=== PATIENT | female | born 1955 | race Caucasian/White ===

== ENCOUNTER → 2023-04-05 | Outpatient (CLI) | payer MEDICARE, SELFPAY | END | disposition home or self-care (01) | PROVIDERS: PCP Family Medicine; Visit Provider Podiatrist Foot & Ankle Surgery | DX: E11.621 Type 2 diabetes mellitus with foot ulcer (principal) | CPT/HCPCS: 87070; 87077; 87186; 87205 ==

== ENCOUNTER 2023-05-07 06:25 | Day surgery (SDC) | payer MEDICARE, SELFPAY ==
[2023-05-07] VITALS (9 sets, daily range): BP systolic 91–162; BP diastolic 53–79; PULSE 83–882; RESP 16–23; TEMP 36.3–36.6; O2SAT 94–98; BMI 38.2
[2023-05-07] MEDS: Gabapentin 600 MG Tablet PO (07:13)
[2023-05-07] MEDS: Acetaminophen 500 MG Tablet 1000 MG PO (07:13)
[2023-05-07] MEDS: Magnesium 1 GM over 15 mins IV (07:13)
[2023-05-07] MEDS: Lactated Ringers 1,000 ML 15 ML IV ×2 (07:13→10:06)
--- NOTE | 2023-05-07 07:30 | RAD_ITS ---
STUDY: X-RAY - LEFT FOOT CLINICAL: Female, 68 years old. DORSIFLEXORY METATARSAL OSTEOTOMY LT 5TH METATARSAL TECHNIQUE: 1 view(s) of the foot. COMPARISON: 09/20/2013 FINDINGS: 31 seconds of fluoroscopy of the left foot was utilized block operator and a single image is cemented for interpretation. . RAD/Foot 2 Views IMPRESSION: Fluoroscopy during surgery. Electronically Signed: Richard Calles MD at 17:22 EDT ,
--- NOTE | 2023-05-07 08:11 | PCM.OPRPT ---
Problems Associated Problem List Diagnoses (1) Non-pressure chronic ulcer of other part of left foot with fat layer exposed: (2) Acute painful diabetic polyneuropathy: (3) Primary osteoarthritis of left foot: (4) Metatarsalgia, left foot: Report of Operation Date of Procedure: 05/07/23 Pre-Operative Diagnosis: 1. Nonpressure ulceration with fat exposed, left foot 2. Diabetes mellitus type 2 with peripheral neuropathy 3. Metatarsalgia, left foot 4. Primary osteoarthritis, left foot Post-Operative Diagnosis: 1. Nonpressure ulceration with fat exposed, left foot 2. Diabetes mellitus type 2 with peripheral neuropathy 3. Metatarsalgia, left foot 4. Primary osteoarthritis, left foot Surgery/Procedure Performed:: 1. Dorsiflexor he osteotomy, fifth metatarsal, left foot 2. Surgical prep wound site, subfifth metatarsal, left foot 3. Application of skin graft substitute, subfifth metatarsal, left foot Description of Surgical Findings:: 1. Complete osteotomy around the surgical neck of the fifth metatarsal, left foot 2. Application of skin graft substitute so fifth metatarsal head, left foot Surgeon: Ramón Squires media arts professor: None Type of Anesthesia: General and Local Anesthesiologist: Elda Bolton Special Medications: None Specimen's removed: None Drains: None Estimated Blood Loss (mL): 1 cc Fluids Replaced: Per anesthesia Description of Procedure: Indications For Operation: Mrs. Marmolejo is a 68-year-old diabetic female who was admitted to [facility] for chronic ulceration to the subfifth metatarsal head of the left foot, metatarsalgia, primary osteoarthritis all of the left foot. Patient is well known to my office and has seen me for initial consultation as well as surgical consultation for the matter described above. She has been having an ongoing wound for approximately 2 months, has gone through 1 round of oral antibiotics, due to the nature of the patient's persistent wound it had deemed necessary at this time to take the patient to the operating room to perform dorsiflexion metatarsal osteotomy of the fifth metatarsal, surgical prep of the ulceration to the subfifth metatarsal as well as application of skin graft substitute all to the left foot.. The nature of the problem, anticipated procedures, postop recovery/convalences and risk/complications include but not limited to infection, wound healing complications, hypertrophic scarring, numbness, tingling, chronic pain, CRPS, over and under correction, recurrence of deformity, DVT and or PE and the need for further surgery have been discussed in great detail with the patient. All questions have been answered to the patient's satisfaction. There are no guarantees given as to the outcome of the procedure. Description of Procedure: Under mild sedation, the patient was brought into the operating room and placed on the operating table in supine position. Once the patient was under general anesthesia with laryngeal mask airway, the left lower extremity was blocked using approximately 20 cc 0.5% Marcaine plain. Next, a well-padded calf tourniquet was applied to the left lower extremity. Next, the left lower extremity was prepped and draped in normal septic manner. Next, left lower extremity was exsanguinated with 4 inch Esmarch, elevated to 60 degrees for 1 minute and the tourniquet was inflated to 275 mmHg. Next, a timeout was then undertaken verifying the correct patient, extremity, visibility of preoperative markings, availability of the equipment. Next, attention was directed to the plantar aspect full-thickness ulceration to the subfifth metatarsal. Using a #15 blade excisional debridement as well as surgical prep for skin graft application was prepared down to and including subcutaneous tissue. Predebridement measurement was eschar. Postdebridement measurement was 0.7 x 0.4 x 0.2 cm. After debridement there showed no evidence of infection, tendon or exposed bone to sub-fifth metatarsal. Next, attention was directed to the dorsal aspect of the left foot over the fifth metatarsal. Using mini C arm and [place] the surgical site was mapped out for percutaneous incision. A small to stab incision was made using a #15 blade was over the surgical neck of the fifth metatarsal. Using the [employer] minimally invasive bobby with water irrigation, a transverse osteotomy was made across the surgical neck of the fifth metatarsal left foot. Osteotomy was confirmed to be through and through with clinical evaluation as well as with mini C-arm fluoroscopy. The small incision was irrigated with copious delmar of normal saline. Morselized bone was evacuated. The stab incision was closed with 1 simple interrupted 3-0 nylon suture. The left calf tourniquet was deflated and reperfusion was noted instantly to the left lower extremity., bio [place] 2 x 2 cm was applied with 100% use to the full-thickness ulceration to the subfifth metatarsal head of the left foot. The left lower extremity was white clean and patted dry. The graft site was dressed with Adaptic, Steri-Strips, the dorsal incision was dressed with Betadine soaked Adaptic, followed by bolster dressing and a single layer Quiroz compression bandage was donned. The patient tolerated the procedure and anesthesia well and apparent satisfactory condition and was transported to the PACU for further monitoring prior to discharge home. Vital signs stable and vascular status intact to all digits bilateral. Post Operative Plan: Weightbearing: Weightbearing as tolerated to left lower extremity with surgical shoe Antibiotics: 2 g Ancef through the IV DVT Prophylaxis: Ambulation Diaz: None Dressin x 2 cm Biovance, Adaptic, Betadine soaked Adaptic to the dorsal incision, dry sterile dressing and a single layer Quiroz compression bandage X-Rays: Post-operative films taken on the operating room. Pain Medication: Percocet 5/325 Follow-up: Follow-up [address] Squires in private office. Grafts/Implants Used: 1. Biovance 2 x 2 cm, left foot Complications None Admit VTE Documentation VTE Present on Admission: No VTE Mechan Device Prophylaxis: SCD's VTE Pharm Prophylaxis ordered?: No
[2023-05-07] MEDS: Cefazolin 2 GM in 0.9% Normal Saline (100mL Bag) 100 ML IV (08:17)
[2023-05-07] MEDS: Bupivacaine Mpf 0.5% 30 ML VIAL (08:36)
[2023-05-07 08:53] LABS: Bedside Glucose 172 mg/dL (74-106)
[2023-05-07 09:47] LABS: Bedside Glucose 104 mg/dL (74-106)
== END 2023-05-07 11:49 | disposition home or self-care (01) ==
LOC: SDC 06:29 → AC 06:32
PROVIDERS: PCP Family Medicine; Referring Provider Podiatrist Foot & Ankle Surgery; Visit Provider Podiatrist Foot & Ankle Surgery
PROC: (CPT 28308; principal; 2023-05-07 08:20)
DX: E11.621 Type 2 diabetes mellitus with foot ulcer (principal); E11.3512 Type 2 diabetes mellitus with proliferative diabetic retinopathy with macular edema, left eye; L97.522 Non-pressure chronic ulcer of other part of left foot with fat layer exposed; E11.42 Type 2 diabetes mellitus with diabetic polyneuropathy; E11.3411 Type 2 diabetes mellitus with severe nonproliferative diabetic retinopathy with macular edema, right eye; E66.01 Morbid (severe) obesity due to excess calories; Z79.4 Long term (current) use of insulin; M19.072 Primary osteoarthritis, left ankle and foot; I10 Essential (primary) hypertension; E78.00 Pure hypercholesterolemia, unspecified; E55.9 Vitamin D deficiency, unspecified; Z68.37 Body mass index [BMI] 37.0-37.9, adult; Z79.82 Long term (current) use of aspirin; Z79.84 Long term (current) use of oral hypoglycemic drugs; Z79.899 Other long term (current) drug therapy
CPT/HCPCS: 28308; 15004; 36415; 73620; 76000; 82962; 83735; 87081; J7120; J2405; J3475

== ENCOUNTER 2023-07-13 23:11 | Emergency (ER) | payer MEDICARE, SELFPAY ==
[2023-07-13 23:11] VITALS: BP 118/99; PULSE 78; RESP 16; TEMP 36.7; O2SAT 97
[2023-07-14 00:40] VITALS: BMI 37.3
--- NOTE | 2023-07-14 01:46 | EX.ED.DYSGE1 ---
HPI History of Present Illness Chief Complaint: Cold Sx Informant: patient Narrative Narrative: Patient is a 68-year-old female with past medical history of insulin-dependent diabetes as well as hypertension. She states she began with congestion drainage and cough on and tested positive for COVID roughly 3 days ago. She states that she is feeling short of breath more so in the last 1 to 2 days then she has and has concerned that her COVID is worsening or that her oxygen level is low and therefore comes in for evaluation [facility] Medical History (Updated 07/15/23 @ 23:[address] Emerson Villalobos, ) Arthritis Diabetes Dietary restriction High cholesterol History of edema History of IBS History of kidney stones Hypertension Non-smoker Wears glasses Home Medications ascorbic acid (vitamin C) 100 mg tablet (Vitamin C) 100 mg PO DAILY 05/02/23 [History Last Taken Unknown] aspirin 81 mg capsule 81 mg PO DAILY 05/02/23 [History Last Taken 04/29/23] cholecalciferol (vitamin D3) 1,250 mcg (50,000 unit) capsule 1,250 mcg PO QWEEK 05/02/23 [History Last Taken Unknown] empagliflozin 25 mg tablet (Jardiance) 25 mg PO DAILY 05/02/23 [History Last Taken Unknown] insulin degludec 200 unit/mL (3 mL) subcutaneous pen (Tresiba FlexTouch U-200 insulin) 65 unit subcut DAILY 05/02/23 [History Last Taken Unknown] insulin degludec 200 unit/mL (3 mL) subcutaneous pen (Tresiba FlexTouch U-200 insulin) 70 unit subcut QHS 05/02/23 [History Last Taken Unknown] lisinopril 20 mg-hydrochlorothiazide 12.5 mg tablet 1 tab PO DAILY 05/02/23 [History Last Taken Unknown] metformin 500 mg tablet,extended release 24 hr 1,000 mg PO BID 05/02/23 [History Last Taken Unknown] multivitamin (Daily Multi-Vitamin tablet) 1 tab PO DAILY 05/02/23 [History Last Taken Unknown] simvastatin 40 mg tablet 40 mg PO DAILY 05/02/23 [History Last Taken Unknown] calcium carbonate 500 mg-vitamin D3 15 mcg (600 unit) tablet (Os-Khoi 500 + D3) 1 tab PO DAILY 90 days #90 tabs 05/07/23 [Rx Last Taken Unknown] docusate sodium 100 mg capsule (Colace) 100 mg PO DAILY 10 days #10 caps 05/07/23 [Rx Last Taken Unknown] albuterol sulfate 90 mcg/actuation aerosol inhaler (Ventolin HFA) 2 puff inhalation Q4H PRN PRN Wheezing/SOB #1 device 07/14/23 [Rx Last Taken Unknown] ascorbic acid (vitamin C) 1,000 mg tablet (Vitamin C) 500 mg PO DAILY 07/14/23 [History Last Taken Unknown] benzonatate 100 mg capsule 100 mg PO Q8H PRN cough 07/14/23 [History Last Taken Unknown] promethazine 6.25 mg/5 mL oral syrup 6.25 mg PO Q6H PRN cough 07/14/23 [History Last Taken Unknown] Allergy/AdvReac Type Severity Reaction Status Date / Time No Known Allergies Allergy Verified 07/13/23 23:13 Surgical History History of hysterectomy Social History Smoking Status: Never smoker ROS ROS ED Constitutional Constitutional ED: Denies chills or fever(s) ENT ENT ED: Reports rhinorrhea and sore throat Cardiovascular Cardiovascular: Denies chest pain Respiratory/Chest Respiratory/Chest: Reports cough and dyspnea Gastrointestinal Gastrointestinal: Denies abdominal pain, diarrhea, nausea or vomiting Genitourinary Genitourinary ED: Denies dysuria Musculoskeletal Musculoskeletal: Reports myalgias Integumentary Denies rash Neurologic Neurologic: Denies headache(s) Hematologic/Lymphatic Hematologic/Lymphatic: Denies easy bleeding or easy bruising EXAM Physical Exam Const Vital Signs: 07/13/23 23:11 07/14/23 00:38 Temperature 98.1 F Temperature Source Temporal Pulse Rate 78 Respiratory Rate 16 Respiratory Effort Short of Breath Respiratory Pattern Normal Blood Pressure 118/99 H Blood Pressure Mean 105 Pulse Ox 97 Oxygen Delivery Method Room Air Positive well nourished, well developed and obese General Appearance ED: well developed Nutritional Appearance: obese HEENT HEENT Narrative: Bilateral TMs are retracted but show no secondary changes to suggest infection Nasal mucosa is hyperemic and boggy with enlarged inferior nasal turbinates Posterior pharynx displays cobblestoning consistent with sinus drainage without airway edema or compromise Eyes PERRL and EOMs intact bilaterally Neck supple and no JVD Neck Narrative: Positive anterior cervical lymphadenopathy Chest Wall palpation of chest normal Chest Narrative: No bony deformity or crepitance Resp normal respiratory effort Resp Narrative: Breath sounds are slight diminished throughout with faint expiratory wheeze in the bilateral bases but otherwise no nasal flaring retractions tachypnea stridor or accessory muscle use Cardio regular rate and regular rhythm Rate: other Other Details: Heart is regular rate and rhythm without murmurs rubs or gallops Radial and carotid pulses are equal and symmetric Extremity normal to inspection Extremity Narrative: No asymmetric edema no pitting edema negative Homans' sign bilaterally Neuro oriented x3, CN's II-XII intact bilaterally and no sensory deficits noted Sensorium / Orientation: alert Motor Exam: strength 5/5 throughout Psych Psych Narrative: Patient has a nervous/anxious affect Skin no rashes or lesions noted MDM MDM MDM Narrative Medical decision making narrative: Patient presented to the ER slightly hypertensive but otherwise with stable vitals. She has known COVID as she tested positive for this a few days ago. At this time she is not hypoxic or showing signs of respiratory distress. Based on this I do not feel there is a need for a chest x-ray as even if it showed pneumonia this could be COVID-pneumonia and would still not require antibiotics. As she is afebrile and not tachycardic my concern for pneumonia and septicemia is low. Therefore at this time patient has COVID but she is not hypoxic she is not in respiratory distress she is not requiring supplemental oxygen and therefore there is no need for further workup and she can be discharged home Discharge Plan Triage Chief Complaint: Cold Sx ED Provider: Emerson Villalobos Dx/Rx/DC Orders Clinical Impression: COVID-19, Insulin dependent diabetes mellitus, Hypertension Instructions: Coronavirus Disease 2019 (COVID-19): Overview, Coronavirus Disease 2019 (COVID-19): Caring for Yourself or Others Prescriptions: New albuterol sulfate [Ventolin HFA] 90 mcg/actuation HFA aerosol inhaler 2 puff inhalation Q4H PRN PRN (Reason: Wheezing/SOB) Qty: 1 0RF No Action benzonatate 100 mg capsule 100 mg PO Q8H PRN (Reason: cough) Patient Comments: Take 1 capsule by mouth every 8 hours as needed for cough for up to 15 days. promethazine 6.25 mg/5 mL syrup 6.25 mg PO Q6H PRN (Reason: cough) Rx Instructions: 3 doses during day; last dose no later than 4 hr before bedtime ascorbic acid (vitamin C) [Vitamin C] 1,000 mg tablet 500 mg PO DAILY Patient Comments: only supposed to take 500 mg lisinopril-hydrochlorothiazide 20-12.5 mg tablet 1 tab PO DAILY Patient Comments: TAKE 1 TABLET BY MOUTH DAILY simvastatin 40 mg tablet 40 mg PO DAILY Patient Comments: TAKE 1 TABLET BY MOUTH EVERY NIGHT AT BEDTIME metformin 500 mg tablet extended release 24 hr 1,000 mg PO BID Patient Comments: TAKE 4 TABLETS BY MOUTH EVERY DAY Vitamin C 100 mg tablet 100 mg PO DAILY aspirin 81 mg capsule 81 mg PO DAILY cholecalciferol (vitamin D3) 1,250 mcg (50,000 unit) capsule 1,250 mcg PO QWEEK Patient Comments: TAKE 1 CAPSULE BY MOUTH EVERY week Jardiance 25 mg tablet 25 mg PO DAILY insulin degludec [Tresiba FlexTouch U-200] 200 unit/mL (3 mL) insulin pen 65 unit subcut DAILY Rx Instructions: MORNING insulin degludec [Tresiba FlexTouch U-200] 200 unit/mL (3 mL) insulin pen 70 unit subcut QHS multivitamin [Daily Multi-Vitamin] Tablet 1 tab PO DAILY docusate sodium [Colace] 100 mg capsule 100 mg PO DAILY 10 Days Qty: 10 0RF calcium carbonate-vitamin D3 [Os-Khoi 500 + D3] 500 mg-15 mcg (600 unit) tablet 1 tab PO DAILY 90 Days Qty: 90 0RF Primary Care Provider: Lamar Granados Referrals: Lamar Granados DO [Primary Care Provider] - Activity Restrictions/Additional Instructions: Continue all the medication that was prescribed by your doctor for your COVID. However as part of your cough is related bronchospasm please use the albuterol inhaler as directed. Your oxygen level today has been very normal at 97 to 100%. Please return to the ER should you have any further concerns or worsening of symptoms Disposition Disposition: Home, Self Care Discharge Date/Time: 07/14/23 02:05
--- OUTSIDE RECORDS SUMMARY | 2023-07-14 01:57 | XMS RPT_ITS | CCD ---
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 Name Role Phone REFERRINGESTEFANIA Unavailable Unavailable QUYEN HIRSCH Unavailable Unavailable QUYEN HIRSCH Unavailable Unavailable LEVAR GRANADOS DO Primary Care Physician [phone] LEVAR RGANADOS DO Attending Unavailable LEVAR GRANADOS DO Primary Care Unavailable LEVAR GRANADOS DO Attending Unavailable LEVAR GRANADOS DO Primary Care Unavailable LEVAR GRANADOS DO Attending Unavailable LEVAR GRANADOS DO Primary Care Unavailable LEVAR GRANADOS DO Attending Unavailable LEVAR GRANADOS DO Primary Care Unavailable LEVAR GRANADOS DO Attending Unavailable LEVAR GRANADOS DO Primary Care Unavailable Levar Granados DO Primary Care Provider [phone] LEVAR GRANADOS Primary Care Unavailable SANGEETA MONCADA Attending Unavailable LEVAR GRANADOS Primary Care Unavailable Allergies Allergy Classification Reported Allergen(s) Allergy Type Date of Onset Reaction(s) Facility (2 sources) Contrast media; Translations: [iodinated radiocontrast agents] Drug allergy Itching (finding) [facility] [place] Medications Current Medications Medication Drug Class(es) Dates Sig (Normalized) Sig (Original) alendronic acid 70 mg oral tablet (1 source) Bisphosphonate Start: 02-16-2022 Fosamax 70 mg oral tablet Dose : 70 mg = 1 tab(s), Oral, qWeek, # 5 tab(s), 3 Refill(s), Pharmacy: [id number], Osteoporosis, 150, cm, 02/16/22 16:05:00 EDT, Height Start Date: 02/16/22 Status: Ordered Ascorbic Acid (1 source) Vitamin C Start: 05-19-2022 Vitamin C qDay, takes periodically, 0 Refill(s) Start Date: 05/19/22 Status: Ordered aspirin 81 mg delayed release oral tablet (4 sources) Platelet Aggregation Inhibitor, Nonsteroidal Anti-inflammatory Drug Start: 02-07-2019 take 1 mg by mouth once daily aspirin 81 mg oral delayed release tablet mg = tab(s), Oral, qDay, 0 Refill(s) Start Date: 02/07/19 Status: Ordered benzonatate 100 mg oral capsule (1 source) Non-narcotic Antitussive Start: 07-09-2023 End: 07-24-2023 take 1 capsule by mouth every eight hours as needed for cough benzonatate (TESSALON PERLE) 100 mg capsule Indications: URI, acute Take 1 capsule by mouth every 8 hours as needed for cough for up to 15 days. 30 capsule 0 07/09/2023 07/24/2023 Active Completed/Discontinued Medications Medication Drug Class(es) Dates Sig (Normalized) Sig (Original) B cmplx 4/vit D3/C/folic/zinc (VITAL-D RX ORAL) (1 source) B cmplx 4/vit D3/C/folic/zinc (VITAL-D RX ORAL) Take by mouth. 0 Active Problems Active Problems Problem Classification Problem Date Documented Date Episodic/Chronic Abdominal pain (4 sources) Stomach ache 03-29-2019 Episodic Allergic reactions (2 sources) Contact dermatitis 02-16-2022 Episodic Calculus of urinary tract (4 sources) Kidney stone 04-29-2015 Episodic Diabetes mellitus with complications (1 source) Diabetic foot ulcer 04-24-2023 Chronic Diabetes mellitus without complication (10 sources) Diabetes mellitus; Translations: [Type 2 diabetes mellitus] Onset: 11-25-1904-29-2015 Chronic Disorders of lipid metabolism (4 sources) Hypercholesterolemia 02-07-2019 Chronic Essential hypertension (7 sources) Hypertensive disorder; Translations: [Essential (primary) hypertension] Onset: 11-25-19 23 02-07-2019 Chronic Mycoses (4 sources) Candidiasis 02-07-2019 Episodic Nutritional deficiencies (4 sources) Vitamin D deficiency 05-21-2020 Chronic Osteoarthritis (4 sources) Arthritis 04-29-2015 Chronic Osteoporosis (2 sources) Osteoporosis 02-16-2022 Chronic Other connective tissue disease (1 source) Foot pain 04-27-2023 Episodic Other gastrointestinal disorders (4 sources) Irritable bowel syndrome 12-03-2020 Chronic Other gastrointestinal disorders (4 sources) Abdominal bloating 03-29-2019 Episodic Other gastrointestinal disorders (1 source) Constipation 04-24-2023 Episodic Other nervous system disorders (2 sources) Numbness of hand 02-16-2022 Episodic Other nutritional; endocrine; and metabolic disorders (1 source) Body mass index 30+ - obesity 08-25-2022 Chronic Other nutritional; endocrine; and metabolic disorders (1 source) Morbid obesity 08-25-2022 Chronic Other screening for suspected conditions (not mental disorders or infectious disease) (2 sources) Viral screening status 02-16-2022 Episodic Other upper respiratory infections (1 source) Acute upper respiratory infection; Translations: [Acute upper respiratory infection, unspecified] 07-09-2023 Episodic Residual codes; unclassified (4 sources) Flushing 12-03-2020 Episodic Residual codes; unclassified (4 sources) Insomnia 07-11-2019 Episodic Residual codes; unclassified (4 sources) Postmenopausal state 10-07-2021 Episodic Residual codes; unclassified (4 sources) Requires vaccination 10-07-2021 Episodic Residual codes; unclassified (1 source) Needs influenza immunization 05-19-2022 Episodic Residual codes; unclassified (1 source) Preoperative state 04-27-2023 Episodic Unclassified (1 source) Unknown / UNK(Unknown) Onset: 01-13-20 Unclassified (18 sources) Patient encounter status 10-07-2021 Unclassified (4 sources) Suspected disease caused by 2019-nCoV 07-29-2020 Unclassified (1 source) Influenza vaccination status 08-25-2022 Unclassified (1 source) Never used tobacco 08-25-2022 Past or Other Problems Problem Classification Problem Date Documented Da te Episodic/Chronic Unclassified (1 source) SCREENING Onset: 01-12-2017 Results Test Name Value Interpretation Reference Range Facil ity Vital Signs Date Time Vital Sign Value Performing Clinician Faci lity 07-09-2023 09:17-0500 Body temperature 97.7 [degF] Sangeeta Moncada MD Work Phone: [facility] 07-09-2023 09:17-0500 Body weight 85.28 kg Sangeeta Moncada MD Work Phone: [facility] 07-09-2023 09:17-0500 Diastolic blood pressure 72 mm[Hg] Sangeeta Moncada MD Work Phone: [facility] 07-09-2023 09:17-0500 Heart rate 94 /min Sangeeta Moncada MD Work Phone: [facility] 07-09-2023 09:17-0500 Respiratory rate 16 /min Sangeeta Moncada MD Work Phone: [facility] 07-09-2023 09:17-0500 SaO2% (BldA) [Mass fraction] 96 % Sangeeta Moncada MD Work Phone: [facility] 07-09-2023 09:17-0500 Systolic blood pressure 122 mm[Hg] Sangeeta Moncada MD Work Phone: [facility] Encounters Encounter Date Encounter Type Care Provider Facility Start: 07-09-2023 End: 07-09-2023 ambulatory LEVAR GRANADOS Facility:[facility] Start: 07-09-2023 End: 07-09-2023 Patient encounter procedure Sangeeta Moncada MD Work Phone: [facility] Procedures Date Procedure Procedure Detail Performing Clinician Hysterectomy GEO MOLINA APR N-LASER/ELECTRO OPTICS TECHNICIAN Kidney stone (disorder) GEO MOLINA TRANSIT DEPARTMENT CLERK-LASER/ELECTRO OPTICS TECHNICIAN Lithotripsy GEO MOLINA APR N-LASER/ELECTRO OPTICS TECHNICIAN Plan of Treatment Date Care Activity Detail Author Start: 07-09-2023 Advance Directive Discussion Advance Directive Discussion [facility] Start: 07-09-2023 Depression Assessment Depression Assessment [facility] Start: 05-21-2023 Urine microalbumin profile DTaP,Tdap,Td Vaccine (2 - Td or Tdap) [facility] Start: 03-09-2023 Covid-19 Vaccine () Covid-19 Vaccine () [facility] Start: 01-19-2020 Screening for osteoporosis Bone Density Screening [facility] Start: 2015 RSV Vaccine (1 - 1-dose 60+ series) RSV Vaccine (1 - 1-dose 60+ series) [facility] Start: 2005 Shingrix Vaccine (1 of 2) Shingrix Vaccine (1 of 2) [facility] Start: 01-19-2000 Diabetes Screening Diabetes Screening [facility] Start: 01-19-2000 Lipid panel Lipid Screening [facility] Start: 01-19-2000 Screening for malignant neoplasm of colon [facility] Start: 1995 Screening for malignant neoplasm of breast Mammogram Screening [facility] Start: 1973 Hepatitis C screening Hepatitis C Screening [facility] COVID & INFLUENZA A/ B & RSV NAAT, ROUTINE COVID & INFLUENZA A/B & RSV NAAT, ROUTINE Microbiology Routine URI, acute Ordered: 07/09/2023 [facility] Work Phone: Immunizations Immunization Date Immunization Notes Care Provider Carlos rosales 02-23-2023 Pneumococcal conjuga te PCV20, polysaccharide [id number] conjugate, adjuvant, PF; Translations: [Prevnar 20] LEVAR GRANADOS DO [facility] 05-19-2022 influenza, high dose seasonal, preservative-free LEVAR GRANADOS DO [facility] 10-07-2021 pneumococcal polysaccharide vaccine, 23 valent; Translations: [Pneumovax 23] GEO MOLINA TRANSIT DEPARTMENT CLERK-LASER/ELECTRO OPTICS TECHNICIAN [facility] 06-24-2021 SARS-CoV-2 mRNA (tozinameran) vaccine GEO MOLINA TRANSIT DEPARTMENT CLERK-LASER/ELECTRO OPTICS TECHNICIAN [facility] 12-09-2020 SARS-CoV-2 mRNA (tozinameran) vaccine GEO MOLINA TRANSIT DEPARTMENT CLERK-LASER/ELECTRO OPTICS TECHNICIAN [facility] Payers Date Payer Category Payer Unknown ANTHEM BLUE CROS S AND BLUE SHIELD AN[employer]M MEDIBLUE HMO [id number] 2023-Present [phone] [address] [place] [address] O [id number] 2021 Unknown [id number] 2016 Unknown [id number] 1955 Unknown [id number] 1955 Unknown [id number] 1955 Unknown [id number] 1955 Unknown [id number] 1955 Unknown [id number] Social History Date Type Detail Facility Start: 02-20-2020 End: 07-04-2023 Tobacco smoking status Never smoked tobacco (finding) [facility] Sex Assigned At Female [facility] Start: 07-04-2023 Tobacco use and exposure Smokeless tobacco non-user [facility] Work Phone: Start: 06-15-2020 End: 07-09-2023 History of Social function [facility] Start: 06-15-2020 End: 07-09-2023 Tobacco use panel [facility] National Score (1-100), lower number is lower risk Not on file [facility] Start: 1955 Sex Assigned At Not on file [facility] Medical Equipment Procedure Code Equipment Code Equipment Origin al Text Equipment Identifier Dates See Instructions , Enbrace talk test strips. Patient to check sugars twice a day. Please give quantity sufficient for 90 days with 3 refills. Diagnosis type 2 diabetes on insulin, # 200 EA, 3 Refill(s), Pharmacy: [facility], Diabetes... Start: 10-07-2021 See Instructions , Please give formulary preferred. Patient to check sugars twice a day. Please give 90-day supply with 3 refills. Diagnosis type 2 diabetes with insulin use, # 200 EA, 3 Refill(s), Pharmacy: [facility], Diabetes, 150... Start: 10-07-2021 See Instructions , USE DIRECTED, # 100 EA, 12 Refill(s), Pharmacy: [facility], Diabetes mellitus, 150, cm, 03/04/21 15:06:00 EDT, Height, 80, kg, 03/04/21 15:06:00 EDT, Dosing Weight Start: 03-04-2021 See Instructions , USE BID. Please give quantity sufficient for 90 days. 3 refills. Diagnosis type 2 diabetes, # 200 EA, 3 Refill(s), Pharmacy: [facility], Diabetes, 150.5, cm, 10/07/21 15:07:00 EDT, Height, 75.9, kg, 10/07/21 15:07... Start: 10-07-2021 See Instructions , Enbrace talk test strips. Patient to check sugars twice a day. Please give quantity sufficient for 90 days with 3 refills. Diagnosis type 2 diabetes on insulin, # 200 EA, 3 Refill(s), Pharmacy: [facility], Diabetes... Start: 10-07-2021 See Instructions , Please give formulary preferred. Patient to check sugars twice a day. Please give 90-day supply with 3 refills. Diagnosis type 2 diabetes with insulin use, # 200 EA, 3 Refill(s), Pharmacy: [facility], Diabetes, 150... Start: 10-07-2021 See Instructions , USE DIRECTED, # 100 EA, 12 Refill(s), Pharmacy: [facility], Diabetes mellitus, 150, cm, 03/04/21 15:06:00 EDT, Height, 80, kg, 03/04/21 15:06:00 EDT, Dosing Weight Start: 03-04-2021 See Instructions , USE BID. Please give quantity sufficient for 90 days. 3 refills. Diagnosis type 2 diabetes, # 200 EA, 3 Refill(s), Pharmacy: [facility], Diabetes, 150.5, cm, 10/07/21 15:07:00 EDT, Height, 75.9, kg, 10/07/21 15:07... Start: 10-07-2021 See Instructions , Enbrace talk test strips. Patient to check sugars twice a day. Please give quantity sufficient for 90 days with 3 refills. Diagnosis type 2 diabetes on insulin, # 200 EA, 3 Refill(s), Pharmacy: [facility], Diabetes... Start: 10-07-2021 See Instructions , Please give formulary preferred. Patient to check sugars twice a day. Please give 90-day supply with 3 refills. Diagnosis type 2 diabetes with insulin use, # 200 EA, 3 Refill(s), Pharmacy: [facility], Diabetes, 150... Start: 10-07-2021 See Instructions , USE DIRECTED, # 100 EA, 12 Refill(s), Pharmacy: [facility], Diabetes mellitus, 150, cm, 03/04/21 15:06:00 EDT, Height, 80, kg, 03/04/21 15:06:00 EDT, Dosing Weight Start: 03-04-2021 See Instructions , USE BID. Please give quantity sufficient for 90 days. 3 refills. Diagnosis type 2 diabetes, # 200 EA, 3 Refill(s), Pharmacy: [facility], Diabetes, 150.5, cm, 10/07/21 15:07:00 EDT, Height, 75.9, kg, 10/07/21 15:07... Start: 10-07-2021 See Instructions , Enbrace talk test strips. Patient to check sugars twice a day. Please give quantity sufficient for 90 days with 3 refills. Diagnosis type 2 diabetes on insulin, # 200 EA, 3 Refill(s), Pharmacy: [facility], Diabetes, 150.5, cm, 10/07/21 15:07:00 EDT, Height, 75.9 Start: 10-07-2021 See Instructions , Please give formulary preferred. Patient to check sugars twice a day. Please give 90-day supply with 3 refills. Diagnosis type 2 diabetes with insulin use, # 200 EA, 3 Refill(s), Pharmacy: [facility], Diabetes, 150.5, cm, 10/07/21 15:07:00 EDT, Height, 75.9 Start: 10-07-2021 UNIFINE PNTP 31G X6MM MIS, 0 Refill(s), 83.9 Start: 10-13-2022 Clinical Notes 01-26-2022 to 07-09-2023 Sangeeta Moncada MD - 07/09/2023 9:19 AM ESTLaboratoryRadiologyLaboratoryLaboratoryLaboratoryRadiology Note Date & Type Note Facility 07-09-2023 Note HNO ID: [id number] Author: Sangeeta Moncada MD Service: ? Author Type: Physician Type: Progress Notes Filed: 07/09/2023 9:54 AM Note Text: Patient presents with: Head Congestion: chest congestion,cough, headache x 1 week HPI: Feeling sick for 8 days. Positive symptoms: Cough, Chest congestion, Headache, Nasal Congestion, Rhinorrhea, chills, scratchy throat Negative symptoms: Shortness of breath, Wheezing, Vomiting, Diarrhea, OTC: Mucinex, zinc. Prescribed doxycycline for burn 07/04/23. Denies history of asthma or pneumonia. No history of smoking. She has had bronchitis in the past. MEDICATIONS: Current Outpatient Medications Medication Sig empagliflozin (JARDIANCE) 25 mg tablet Take 25 mg by mouth daily with breakfast. metFORMIN ER (GLUCOPHAGE XR) 750 mg 24 hr tablet Take 750 mg by mouth daily with breakfast. lisinopril-hydrochlorothiazide (PRINZIDE,ZESTORETIC) 10-12.5 mg per tablet Take 1 tablet by mouth once daily. insulin detemir (LEVEMIR FLEXPEN SUBCUTANEOUS) Inject subcutaneously. simvastatin (ZOCOR) 40 mg tablet Take 40 mg by mouth daily at bedtime. B cmplx 4/vit D3/C/folic/zinc (VITAL-D RX ORAL) Take by mouth. No current facility-administered medications for this visit. ALLERGIES: ALLERGIES No Known Allergies VITALS: BP 122/72 Pulse 94 Temp 36.5 ?C (97.7 ?F) Resp 16 Wt 85.3 kg (188 lb) SpO2 96% PHYSICAL EXAM: GEN: pleasant, alert, mildly ill appearing HEENT: PERRL, EOMI, conjunctiva clear Ears: canals clear. TMs without erythema, bulge, or effusion Sinuses: non-tender frontal sinus, non-tender maxillary sinuses Throat: moist mucous membranes, no erythema, no exudate Neck: supple, no thyromegaly, no lymphadenopathy HEART: regular rate and rhythm, no murmurs LUNGS: clear to auscultation, no wheezes or crackles, no increased WOB; inspiration induces cough. ASSESSMENT/PLAN: 1. URI, acute - ICD9: 465.9, ICD10: J06.9 - Discussed viral etiology and rationale for treatment. - differential includes - COVID AND INFLUENZA A/B AND RSV NAAT, ROUTINE. She is beyond the therapeutic window for antiviral medication. - Discussed supportive care treatment with home isolation, rest, cold medicine, and analgesia. - Red flags to seek further treatment include chest pain, shortness of breath, and lethargy; in the ER if severe. - Symptomatic treatment with prn cough suppressant. - BENZONATATE 100 MG CAPSULE Sangeeta Moncada MD [facility] 07-09-2023 History of Present illness Narrative Patient presents with: Head Congestion: chest congestion,cough, headache x 1 week HPI: Feeling sick for 8 days. Positive symptoms: Cough, Chest congestion, Headache, Nasal Congestion, Rhinorrhea, chills, scratchy throat Negative symptoms: Shortness of breath, Wheezing, Vomiting, Diarrhea, OTC: Mucinex, zinc. Prescribed doxycycline for burn 07/04/23. Denies history of asthma or pneumonia. No history of smoking. She has had bronchitis in the past. MEDICATIONS: Current Outpatient Medications Medication Sig empagliflozin (JARDIANCE) 25 mg tablet Take 25 mg by mouth daily with breakfast. metFORMIN ER (GLUCOPHAGE XR) 750 mg 24 hr tablet Take 750 mg by mouth daily with breakfast. lisinopril-hydrochlorothiazide (PRINZIDE,ZESTORETIC) 10-12.5 mg per tablet Take 1 tablet by mouth once daily. insulin detemir (LEVEMIR FLEXPEN SUBCUTANEOUS) Inject subcutaneously. simvastatin (ZOCOR) 40 mg tablet Take 40 mg by mouth daily at bedtime. B cmplx 4/vit D3/C/folic/zinc (VITAL-D RX ORAL) Take by mouth. No current facility-administered medications for this visit. ALLERGIES: ALLERGIES No Known Allergies VITALS: BP 122/72 Pulse 94 Temp 36.5 C (97.7 F) Resp 16 Wt 85.3 kg (188 lb) SpO2 96% PHYSICAL EXAM: GEN: pleasant, alert, mildly ill appearing HEENT: PERRL, EOMI, conjunctiva clear Ears: canals clear. TMs without erythema, bulge, or effusion Sinuses: non-tender frontal sinus, non-tender maxillary sinuses Throat: moist mucous membranes, no erythema, no exudate Neck: supple, no thyromegaly, no lymphadenopathy HEART: regular rate and rhythm, no murmurs LUNGS: clear to auscultation, no wheezes or crackles, no increased WOB; inspiration induces cough. ASSESSMENT/PLAN: 1. URI, acute - ICD9: 465.9, ICD10: J06.9 - Discussed viral etiology and rationale for treatment. - differential includes - COVID & INFLUENZA A/B & RSV NAAT, ROUTINE. She is beyond the therapeutic window for antiviral medication. - Discussed supportive care treatment with home isolation, rest, cold medicine, and analgesia. - Red flags to seek further treatment include chest pain, shortness of breath, and lethargy; in the ER if severe. - Symptomatic treatment with prn cough suppressant. - BENZONATATE 100 MG CAPSULE Sangeeta Moncada MD documented in this encounter [facility] 07-04-2023 Note HNO ID: [id number] Author: Darlene Bartholomew APRN.LASER/ELECTRO OPTICS TECHNICIAN Service: ? Author Type: Nurse Practitioner Type: Progress Notes Filed: 07/04/2023 2:58 PM Note Text: CC: Patient presents with: Congested: cough and chills x 3 days HPI: Cecelia Marmolejo is a 68 year old female who presents to the office with complaint of head congestion and cough, nonproductive for a few days. Symptoms are staying the same. Associated symptoms includes chills. Denies fever, nausea, vomiting , and diarrhea. Treatments tried include nothing so far. with no relief of symptoms. Sick contacts: unknown. History of asthma, frequent episodes of bronchitis, chronic bronchitis, bronchiectasis or COPD: No Smoker: No Seasonal/environmental allergies: No The ROS is otherwise negative. The patient's pmh, medications, allergies, and past visits are reviewed. PHYSICAL EXAM: BP 142/92 Pulse 82 Temp 36.2 ?C (97.2 ?F) Resp 18 Wt 85.7 kg (189 lb) SpO2 97% General appearance: alert, cooperative, pleasant, in no acute distress Head: Normocephalic Eyes: EOM's intact, conjunctiva pink and moist, no icterus, sclera white, non-injected Heart: Negative. RRR without obvious murmur, gallop, or rubs. No ectopy. Lungs: clear to auscultation, without rales or wheeze, good air exchange Skin: patient had small scabbed area on top right hand by thumb about half inch in size with erythema surrounding the area. Patient said she burnt herself about 5 days ago. Area warm and painful. No past medical history on file. No past surgical history on file. ALLERGIES Patient has no known allergies. MEDICATIONS metFORMIN ER (GLUCOPHAGE XR) 750 mg 24 hr tablet Take 750 mg by mouth daily with breakfast. lisinopril-hydrochlorothiazide (PRINZIDE,ZESTORETIC) 10-12.5 mg per tablet Take 1 tablet by mouth once daily. insulin detemir (LEVEMIR FLEXPEN SUBCUTANEOUS) Inject subcutaneously. simvastatin (ZOCOR) 40 mg tablet Take 40 mg by mouth daily at bedtime. B cmplx 4/vit D3/C/folic/zinc (VITAL-D RX ORAL) Take by mouth. empagliflozin (JARDIANCE) 25 mg tablet Take 25 mg by mouth daily with breakfast. doxycycline monohydrate 100 mg tablet Take 1 tablet by mouth two times a day for 5 days. No family history on file. Social History Tobacco Use Smoking status: Never Smokeless tobacco: Never ASSESSMENT/PLAN: 1. URI, acute - ICD9: 465.9, ICD10: J06.9 (primary diagnosis) - COVID AND INFLUENZA A/B AND RSV NAAT, ROUTINE 2. Skin infection - ICD9: 686.9, ICD10: L08.9 - DOXYCYCLINE MONOHYDRATE 100 MG TABLET Prescription instructions reviewed with patient as applicable. Potential red flag symptoms discussed with the patient. Reviewed appropriate action plan to take if red flag symptoms occur. Patient agreeable to treatment plan. Darlene Bartholomew APRN.[facility] 02-15-2022 Note ORIGINAL EXAMINATION: BONE DENSITOMETRY02/15/2022 2:56 pm BONE DENSITY/DEXA [facility] BONE DENSITOMETRY TECHNIQUE: Bone mineral density measurements were obtained of the lumbar spine and left hip on a Hologic machine. COMPARISON: None HISTORY: ORDERING SYSTEM PROVIDED HISTORY: Reason for Exam: Osteoporosis Screening FINDINGS: BMD (g/cm2) Lumbar Spine L1-L4: 0.832 t Score Lumbar Spine L1-L4: -2.0 BMD (g/cm2) Left Femoral Neck: 0.537 t Score Left Femoral Neck: -2.8 BMD (g/cm2) Left Hip: 0.828 t Score Left Hip: -0.9 *By the World Health Organization criteria: (Comparing with young normal sex matched population) - Normal: T-score at or above -1 SD (standard deviation) - Osteopenia: T-score between -1 and -2.5 SD - Osteoporosis: T-score at or below -2.5 SD FRAX: 10-year fracture risk assessment Not applicable as some T-scores are at or below -2.5. IMPRESSION: Osteoporosis. I have personally reviewed the images of this examination and agree with the resident's findings and interpretation. Interpreted by: Yue Ramsey Preliminary Report By: Bonnie Perry Electronically signed By Yue Ramsey Dictated Date: 02/15/2022 3:30:10 PM Prelim Date: 02/15/2022 5:27:07 PM Sign Date: 02/15/2022 5:27:07 PM Ordering Provider: LEVAR GRANADOS [facility] 02-15-2022 Note ORIGINAL EXAMINATION: BONE DENSITOMETRY02/15/2022 2:56 pm BONE DENSITY/DEXA [facility] BONE DENSITOMETRY TECHNIQUE: Bone mineral density measurements were obtained of the lumbar spine and left hip on a Hologic machine. COMPARISON: None HISTORY: ORDERING SYSTEM PROVIDED HISTORY: Reason for Exam: Osteoporosis Screening FINDINGS: BMD (g/cm2) Lumbar Spine L1-L4: 0.832 t Score Lumbar Spine L1-L4: -2.0 BMD (g/cm2) Left Femoral Neck: 0.537 t Score Left Femoral Neck: -2.8 BMD (g/cm2) Left Hip: 0.828 t Score Left Hip: -0.9 *By the World Health Organization criteria: (Comparing with young normal sex matched population) - Normal: T-score at or above -1 SD (standard deviation) - Osteopenia: T-score between -1 and -2.5 SD - Osteoporosis: T-score at or below -2.5 SD FRAX: 10-year fracture risk assessment Not applicable as some T-scores are at or below -2.5. IMPRESSION: Osteoporosis. I have personally reviewed the images of this examination and agree with the resident's findings and interpretation. Interpreted by: Yue Ramsey Preliminary Report By: Bonnie Perry Electronically signed By Yue Ramsey Dictated Date: 02/15/2022 3:30:10 PM Prelim Date: 02/15/2022 5:27:07 PM Sign Date: 02/15/2022 5:27:07 PM Ordering Provider: LEVAR GRANADOS [facility] 01-26-2022 Note ORIGINAL EXAMINATION: THREE XRAY VIEWS OF THE RIGHT FOOT01/26/2022 10:52 am COMPARISON: None HISTORY: ORDERING SYSTEM PROVIDED HISTORY: Reason for Exam: Intermittent lateral right foot pain x2 weeks, no known injury FINDINGS: No fracture or dislocation is seen. Mild degenerative changes of the Lisfranc joints and intercuneiform joints. No significant joint effusion. Plantar calcaneal enthesopathy. Vascular calcifications present. IMPRESSION: Mild degenerative changes of the midfoot. No acute process. I have personally reviewed the images of this examination agree with resident's findings and interpretation. Interpreted by: Marquis Barfield MD Preliminary Report By: Irish Mayorga Electronically signed By Marquis Barfield MD Dictated Date: 01/26/2022 2:38:08 PM Prelim Date: 01/26/2022 4:25:53 PM Sign Date: 01/26/2022 4:25:53 PM Ordering Provider: GEO MOLINA [facility] 01-26-2022 Note ORIGINAL EXAMINATION: THREE XRAY VIEWS OF THE RIGHT FOOT01/26/2022 10:52 am COMPARISON: None HISTORY: ORDERING SYSTEM PROVIDED HISTORY: Reason for Exam: Intermittent lateral right foot pain x2 weeks, no known injury FINDINGS: No fracture or dislocation is seen. Mild degenerative changes of the Lisfranc joints and intercuneiform joints. No significant joint effusion. Plantar calcaneal enthesopathy. Vascular calcifications present. IMPRESSION: Mild degenerative changes of the midfoot. No acute process. I have personally reviewed the images of this examination agree with resident's findings and interpretation. Interpreted by: Marquis Barfield MD Preliminary Report By: Irish Mayorga Electronically signed By Marquis Barfield MD Dictated Date: 01/26/2022 2:38:08 PM Prelim Date: 01/26/2022 4:25:53 PM Sign Date: 01/26/2022 4:25:53 PM Ordering Provider: GEO MOLINA [facility] Evaluation + Plan note Future Appointments Appointment Date:02/15/2022 02:30:00 PM Scheduled Provider: Location:[facility] Appointment Type:BD Bone Density DEXA Axial Skeleton Appointment Date:02/15/2022 03:00:00 PM Scheduled Provider: Location:[facility] Appointment Type:MA Mammogram Screening Bilateral w/ Luís Appointment Date:02/16/2022 04:00:00 PM Scheduled Provider:LEVAR GRANADOS DO Location:[facility] Appointment Type:PC Wellness Medicare Appointment Date:03/29/2022 02:00:00 PM Scheduled Provider: Location:[facility] [[email or web address] Appointment Type:DB Diabetic Individual Visit Future Scheduled TestsThyroid Stimulating Hormone 10/07/21Lipid Profile 10/07/21Complete Metabolic Panel 10/07/21Respiratory ID Panel with COVID-19 by PCR 05/28/21MA Mammo Screening Bilateral w/ Luís 02/15/22BD Bone Density DEXA Axial Skeleton 02/15/22 [facility] Evaluation + Plan note Future Appointments Appointment Date:02/16/2022 04:00:00 PM Scheduled Provider:LEVAR GRANADOS DO Location:[facility] Appointment Type:PC Wellness Medicare Appointment Date:03/29/2022 02:00:00 PM Scheduled Provider: Location:[facility] [[email or web address]] Appointment Type:DB Diabetic Individual Visit Future Scheduled TestsThyroid Stimulating Hormone 10/07/21Lipid Profile 10/07/21Complete Metabolic Panel 10/07/21Respiratory ID Panel with COVID-19 by PCR 05/28/21 [facility] Evaluation + Plan note Future Appointments Appointment Date:03/29/2022 02:00:00 PM Scheduled Provider: Location:[facility] [[email or web address]] Appointment Type:DB Diabetic Individual Visit Appointment Date:05/19/2022 03:00:00 PM Scheduled Provider:LEVAR GRANADOS DO Location:[facility] Appointment Type:PC OV Future Scheduled TestsThyroid Stimulating Hormone 10/07/21Lipid Profile 10/07/21Complete Metabolic Panel 10/07/21Respiratory ID Panel with COVID-19 by PCR 05/28/21 [facility] Evaluation + Plan note Future Appointments Appointment Date:05/25/2023 02:30:00 PM Scheduled Provider:LEVAR GRANADOS DO Location:[facility] Appointment Type:PC OV Appointment Date:07/26/2023 01:30:00 PM Scheduled Provider: Location:[facility] [[email or web address]] Appointment Type:DB Diabetic Individual Visit ([facility]) Future Scheduled TestsThyroid Stimulating Hormone 02/23/23Lipid Profile 02/23/23Vitamin D Level 02/23/23Complete Metabolic Panel 02/23/23MA Mammo Screening Bilateral w/ Luís 02/23/23 [facility] documented in this encounter [facility] course Narrative No data available for this section [facility] Hospital Discharge instructions No data available for this section [facility] Progress note No data available for this section [facility] Summary Purpose Family History No Family History Records Found No data available for this section No Family History Records FoundNo Family History Records Found Advance Directives No Advanced Directives Records FoundNo Advanced Directives Records FoundNo Advanced Directives Records Found Additional Source Comments INFORMATION SOURCE (unrecogn ized section and content) DATE CREATED AUTHOR AUTHOR'S ORGANIZ ATION 07/05/2023 [facility] ([place]) DATE CREATED AUTHOR AUTHOR'S ORGANIZ ATION 07/11/2023 [facility] Care Team (unrecognized sect ion and content) Care Team Personnel Name: LEVAR GRANADOS DO Position: P4 Physician - Primary Care Med Service: Active Provider Member Role: Primary Care Physician Address: Address: [address] [facility] [place] [address]- [place] Care Team Related Persons Name: REGINALD MEEHAN Care Team Personnel Name: LEVAR GRANADOS Position: P4 Physician - Primary Care Med Service: Active Provider Member Role: Primary Care Physician Address: Address: [address] [place] [id number] [place] [address] Care Team Related Persons Name: REGINALD MEEHAN Care Team Personnel Name: LEVAR GRANADOS Position: P4 Physician - Primary Care Med Service: Active Provider Member Role: Primary Care Physician Address: Address: [address] [place] [address] Name: MD QUYEN VALDES Position: P3 Physician - Surgery Med Service: Active Provider Member Role: Geology Technician Address: Address: [address] [place] [address] [facility] [address] Care Team Related Persons Name: REGINALD MEEHAN Patient Care team informatio n (unrecognized section and content) Source Comments (unrecognize d section and content) In the event this informatio n is protected by the Federal Confidentiality of Alcohol and Drug Abuse Patient Records regulations: The Federal rules restrict any use of the information to criminally investigate or prosecute any alcohol or drug abuse patient.[facility] Reason for Visit (unrecogniz ed section and content) FOR RECORDS PERTAINING TO PATIENTS WHO ARE OR HAVE BEEN ENROLLED IN A CHEMICAL DEPENDENCY/SUBSTANCEABUSE PROGRAM, SOME INFORMATION MAY BE OMITTED. This clinical summary was aggregated from multiple sources. Caution should be exercised in using it in the provision of clinical care. This summary normalizes information from multiple sources, and as a consequence, information in this document may materially change the coding, format and clinical context of patient data. In addition, data may be omitted in some cases. CLINICAL DECISIONS SHOULD BE BASED ON THE PRIMARY CLINICAL RECORDS. [facility] [employer] [facility]. provides no warranty or guarantee of the accuracy or completeness of information in this document.
[2023-07-14] MEDS: Albuterol Sulfate 8 gm Inhaler (60 puffs) 4 PUFF INHALATION (01:58)
== END 2023-07-14 02:05 | disposition home or self-care (01) ==
LOC: ED 07-14 01:55
PROVIDERS: Emergency Provider Emergency Medicine; PCP Family Medicine; Referring Provider Emergency Medicine; Visit Provider Emergency Medicine
DX: U07.1 COVID-19 (principal); Z79.4 Long term (current) use of insulin; E11.9 Type 2 diabetes mellitus without complications; I10 Essential (primary) hypertension; E66.9 Obesity, unspecified; Z79.82 Long term (current) use of aspirin; Z79.84 Long term (current) use of oral hypoglycemic drugs; Z79.899 Other long term (current) drug therapy
CPT/HCPCS: 99282

== ENCOUNTER 2023-12-07 20:55 | Emergency (ER) | payer MEDICARE, SELFPAY ==
[2023-12-07 20:55] VITALS: BP 157/68; PULSE 88; RESP 16; TEMP 36.6; O2SAT 96; BMI 38.0
--- NOTE | 2023-12-07 21:04 | RAD_ITS ---
INDICATION: injury EXAMINATION/TECHNIQUE: X-RAY - RIGHT XR Shoulder Min 2 Views 2 VIEWS COMPARISON: Clavicle radiograph on same day FINDINGS: SOFT TISSUES: No soft tissue swelling or subcutaneous emphysema. No radiopaque foreign body. BONES/JOINTS: No acute fracture. No Hill-Sachs or Bankart lesion... Normal glenohumeral and acromioclavicular alignment with mild degenerative osteophyte formation. . No sclerotic or destructive changes observed. RAD/Shoulder min 2 Views IMPRESSION: No evidence of acute injury. Mild degenerative changes.. Electronically Signed: Yeyo Broderick MD at 21:56 EDT ,
--- NOTE | 2023-12-07 21:19 | EDS_ITS ---
HPI <MODE Cavanaugh - Last Filed: 12/07/23 22:05> History of Present Illness Chief Complaint: Upper Extremity Injury Narrative Narrative: Patient presenting today with pain to her right shoulder and clavicle after an injury that took place this evening. She was at a concert and went to sit down in a chair when the chair tipped sideways and she fell over onto her right shoulder. She did not hit her head and denies any other injury. She reports that she did fracture her R clavicle a few years ago. She is right-handed. [facility] <MODE Cavanaugh - Last Filed: 12/07/23 22:05> [facility] Medical History Wears glasses Arthritis High cholesterol Dietary restriction History of IBS Non-smoker History of edema Diabetes Hypertension History of kidney stones Home Medications ?Medication ?Instructions ?Recorded ?Last Taken ?Type ascorbic acid (vitamin C) 100 mg 100 mg PO DAILY 05/02/23 Unknown History tablet (Vitamin C) aspirin 81 mg capsule 81 mg PO DAILY 05/02/23 04/29/23 History cholecalciferol (vitamin D3) 1,250 1,250 mcg PO QWEEK 05/02/23 Unknown History mcg (50,000 unit) capsule empagliflozin 25 mg tablet 25 mg PO DAILY 05/02/23 Unknown History (Jardiance) insulin degludec 200 unit/mL (3 65 unit subcut DAILY 05/02/23 Unknown History mL) subcutaneous pen (Tresiba FlexTouch U-200 insulin) insulin degludec 200 unit/mL (3 70 unit subcut QHS 05/02/23 Unknown History mL) subcutaneous pen (Tresiba FlexTouch U-200 insulin) lisinopril 20 1 tab PO DAILY 05/02/23 Unknown History mg-hydrochlorothiazide 12.5 mg tablet metformin 500 mg tablet,extended 1,000 mg PO BID 05/02/23 Unknown History release 24 hr multivitamin (Daily Multi-Vitamin 1 tab PO DAILY 05/02/23 Unknown History tablet) simvastatin 40 mg tablet 40 mg PO DAILY 05/02/23 Unknown History calcium carbonate 500 mg-vitamin 1 tab PO DAILY 90 days #90 tabs 05/07/23 Unknown Rx D3 15 mcg (600 unit) tablet (Os-Khoi 500 + D3) docusate sodium 100 mg capsule 100 mg PO DAILY 10 days #10 caps 05/07/23 Unknown Rx (Colace) albuterol sulfate 90 mcg/actuation 2 puff inhalation Q4H PRN PRN 07/14/23 Unknown Rx aerosol inhaler (Ventolin HFA) Wheezing/SOB #1 device ascorbic acid (vitamin C) 1,000 mg 500 mg PO DAILY 07/14/23 Unknown History tablet (Vitamin C) benzonatate 100 mg capsule 100 mg PO Q8H PRN cough 07/14/23 Unknown History promethazine 6.25 mg/5 mL oral 6.25 mg PO Q6H PRN cough 07/14/23 Unknown History syrup Allergy/AdvReac Type Severity Reaction Status Date / Time cashew nut (cashews) AdvReac KIDNEY Verified 12/07/23 20:57 STONES peanut AdvReac KIDNEY Verified 12/07/23 20:57 STONES Surgical History History of hysterectomy Social History Smoking Status: Never smoker ROS <MODE Cavanaugh - Last Filed: 12/07/23 22:05> ROS ED Constitutional Constitutional ED: Denies chills or fever(s) Cardiovascular Cardiovascular: Denies chest pain Respiratory/Chest Respiratory/Chest: Denies dyspnea Gastrointestinal Gastrointestinal: Denies abdominal pain, nausea or vomiting Musculoskeletal Musculoskeletal: Reports arthralgias Integumentary Denies Abrasions Neurologic Neurologic: Denies paresthesias or weakness EXAM <MODE Cavanaugh - Last Filed: 12/07/23 22:05> Physical Exam Const Vital Signs: 12/07/23 20:55 Temperature 97.8 F Temperature Source Temporal Pulse Rate 88 Respiratory Rate 16 Blood Pressure 157/68 H Blood Pressure Mean 97 Pulse Ox 96 Oxygen Delivery Method Room Air Positive well nourished, well developed and no apparent distress General Appearance ED: well developed HEENT Reports normocephalic and head/scalp atraumatic Mouth ED: Yes moist mucous membranes normal Eyes PERRL and EOMs intact bilaterally Neck full ROM and supple Chest Wall inspection of chest normal Resp normal respiratory effort and clear to auscultation bilaterally Cardio regular rate and regular rhythm GI soft to palpation and non-tender Back/Spine normal to inspection Thoracic Spine / Upper Back: Negative for thoracic spinal tenderness Lumbar Spine / Lower Back: Negative for lumbar spinal tenderness Extremity normal to inspection and full ROM Extremity Narrative: Limited range of motion to the right shoulder due to pain, pain to palpation along the right clavicle and right shoulder. Right radial pulse 2+, good capillary refill, sensation intact. Neuro oriented x3, CN's II-XII intact bilaterally, moves all extremities, no focal motor deficits and no sensory deficits noted Sensorium / Orientation: awake and alert Psych mental status grossly normal and thought process normal Skin no rashes or lesions noted and no wounds [facility] <MODE Cavanaugh - Last Filed: 12/07/23 22:05> [facility] Narrative Medical decision making narrative: Patient presenting with pain to her right shoulder after the chair she sat in during a concert tipped to the side and she fell onto her right shoulder. There was no head injury. X-ray will be obtained of the shoulder and clavicle to rule out fracture. She was given Percocet for pain. X-rays are negative for fracture. RICE instructions were discussed, she can take Tylenol for pain as needed at home. I have given her an orthopedic referral to follow-up with if needed. She will be discharged home in stable condition. <Alexis Landrum MD - Last Filed: 12/07/23 22:09> [facility] History & Record Review Discussion w/independent historian: Patient and Friend Radiography X-Ray: Read by ED Physician Treatment and Re-Evaluation Narrative: Dr. Landrum: I have personally performed a face to face assessment of the patient and have reviewed the BUSTER Note. I performed a substantive portion of the visit including all aspects of the following. My koroma findings include: History is chair broke and patient fell onto right shoulder while at a concert. History of previous clavicular fracture. Positive pain with movement. No hitting of head or loss of consciousness. Exam is afebrile. Vital signs noted. GCS 15. ABCs intact. Mild tenderness to palpation diffusely throughout right shoulder, no clinical dislocation. Mild tenderness along clavicle, no crepitance. Palpable radial pulse. Medical Decision Making: Check x-rays. X-rays interpreted by myself independently of the right clavicle show no evidence of acute fracture. I reviewed the radiology report which confirms my independent interpretation. Additionally, x-rays of the right shoulder interpreted by myself independently shows no dislocation, no fracture and I reviewed the radiology report which confirms my independent interpretation. Patient was given analgesics here in the emergency department, but I feel [id number] medications are appropriate for home use. She will continue application of ice and follow-up with her primary care provider. Disposition is discharged home in stable condition. Other additions or changes: [None] Discharge Plan Triage Chief Complaint: Upper Extremity Injury ED Midlevel Provider: Nancy Rivas ED Provider: Alexis Landrum Dx/Rx/DC Orders Clinical Impression: Contusion of shoulder, right, Contusion of clavicle, Fall Instructions: ED Shoulder Sprain Prescriptions: No Action benzonatate 100 mg capsule 100 mg PO Q8H PRN (Reason: cough) Patient Comments: Take 1 capsule by mouth every 8 hours as needed for cough for up to 15 days. promethazine 6.25 mg/5 mL syrup 6.25 mg PO Q6H PRN (Reason: cough) Rx Instructions: 3 doses during day; last dose no later than 4 hr before bedtime ascorbic acid (vitamin C) [Vitamin C] 1,000 mg tablet 500 mg PO DAILY Patient Comments: only supposed to take 500 mg albuterol sulfate [Ventolin HFA] 90 mcg/actuation HFA aerosol inhaler 2 puff inhalation Q4H PRN PRN (Reason: Wheezing/SOB) Qty: 1 0RF lisinopril-hydrochlorothiazide 20-12.5 mg tablet 1 tab PO DAILY Patient Comments: TAKE 1 TABLET BY MOUTH DAILY simvastatin 40 mg tablet 40 mg PO DAILY Patient Comments: TAKE 1 TABLET BY MOUTH EVERY NIGHT AT BEDTIME metformin 500 mg tablet extended release 24 hr 1,000 mg PO BID Patient Comments: TAKE 4 TABLETS BY MOUTH EVERY DAY Vitamin C 100 mg tablet 100 mg PO DAILY aspirin 81 mg capsule 81 mg PO DAILY cholecalciferol (vitamin D3) 1,250 mcg (50,000 unit) capsule 1,250 mcg PO QWEEK Patient Comments: TAKE 1 CAPSULE BY MOUTH EVERY week Jardiance 25 mg tablet 25 mg PO DAILY insulin degludec [Tresiba FlexTouch U-200] 200 unit/mL (3 mL) insulin pen 65 unit subcut DAILY Rx Instructions: MORNING insulin degludec [Tresiba FlexTouch U-200] 200 unit/mL (3 mL) insulin pen 70 unit subcut QHS multivitamin [Daily Multi-Vitamin] Tablet 1 tab PO DAILY docusate sodium [Colace] 100 mg capsule 100 mg PO DAILY 10 Days Qty: 10 0RF calcium carbonate-vitamin D3 [Os-Khoi 500 + D3] 500 mg-15 mcg (600 unit) tablet 1 tab PO DAILY 90 Days Qty: 90 0RF Primary Care Provider: Lamar Granados Referrals: Lamar Granados, [Primary Care Provider] - As Needed Dionte Tejada MD [Med Staff - Active Staff] - 1 Week Activity Restrictions/Additional Instructions: Follow-up with your PCP or orthopedics in 1 week if no improvement of your symptoms. You can take Tylenol for your pain as needed. Print Language: Georgian Disposition Disposition: Home, Self Care
--- NOTE | 2023-12-07 21:20 | RAD_ITS ---
STUDY: X-RAY - RIGHT CLAVICLE REASON FOR EXAM: Female, 68 years old. injury TECHNIQUE: 2 view(s) of the clavicle. COMPARISON: Shoulder radiograph same day. Rib radiograph October 29, 2011 FINDINGS: Normal clavicle. Normal acromioclavicular articulation. Normal visualized sternoclavicular articulation. Normal visualized pulmonary apex. RAD/Clavicle IMPRESSION: No acute osseous finding Electronically Signed: Yeyo Broderick MD at 21:57 EDT ,
[2023-12-07] MEDS: oxyCODONE 5 MG Tablet PO (22:15)
[2023-12-07 22:24] VITALS: BP 145/62; PULSE 81; RESP 16; TEMP 36.7; O2SAT 98
== END 2023-12-07 22:25 | disposition home or self-care (01) ==
PROVIDERS: Emergency Provider Emergency Medicine; PCP Family Medicine; Visit Provider Emergency Medicine
DX: S40.011A Contusion of right shoulder, initial encounter (principal); E11.9 Type 2 diabetes mellitus without complications; Z79.4 Long term (current) use of insulin; W07.XXXA Fall from chair, initial encounter; Y93.89 Activity, other specified; Y99.8 Other external cause status; I10 Essential (primary) hypertension; E78.00 Pure hypercholesterolemia, unspecified; Z79.82 Long term (current) use of aspirin; Z79.84 Long term (current) use of oral hypoglycemic drugs; Z79.899 Other long term (current) drug therapy
CPT/HCPCS: 73000; 73030; 99282

== ENCOUNTER 2024-07-08 01:45 | Emergency (ER) | payer MEDICARE, SELFPAY ==
[2024-07-08 01:46] VITALS: BP 123/90; PULSE 84; RESP 15; TEMP 36.7; O2SAT 94; BMI 39.8
--- NOTE | 2024-07-08 03:25 | CT_ITS ---
EXAM: CT ABDOMEN AND PELVIS WITHOUT INTRAVENOUS CONTRAST CLINICAL INDICATION: left flank pain TECHNIQUE: Helically acquired images were obtained of the abdomen and pelvis without intravenous contrast. This CT exam was performed using one or more of the following dose reduction techniques: automated exposure control, adjustment of the mA and/or kV according to patient size, and/or use of iterative reconstruction technique. RADIATION DOSE: CTDIvol = 16.69 mGy, DLP = 829.80 mGy-cm COMPARISON: No relevant prior studies available. FINDINGS: LOWER THORAX: Coronary artery calcifications. Subsegmental atelectasis in the lung bases. No cardiomegaly. No significant pericardial effusion. ABDOMEN: LIVER: Unremarkable. Homogeneous. GALLBLADDER AND BILE DUCTS: Unremarkable. No calcified gallstones. No gallbladder distention or wall edema. No intra- or extrahepatic biliary ductal dilation. PANCREAS: Unremarkable. No focal cystic mass. SPLEEN: Unremarkable. Normal size without focal cystic or solid mass. ADRENALS: Unremarkable. No nodules. KIDNEYS AND URETERS: Stone measuring 1.3 x 2 x 1.2 cm and the left renal pelvis with mild left hydronephrosis. At least two tiny nonobstructing calculi in the right kidney and a nonobstructing calculus in the left kidney measuring 1 cm. Normal renal size and position. STOMACH AND BOWEL: Scattered diverticula without diverticulitis. No stomach or bowel distention. PELVIS: APPENDIX: No evidence of acute appendicitis. BLADDER: Unremarkable. REPRODUCTIVE: Hysterectomy. ABDOMEN and PELVIS: INTRAPERITONEAL SPACE: Unremarkable. No ascites or other fluid collection. No free air. BONES/JOINTS: Unremarkable. No suspicious lytic or blastic abnormality. SOFT TISSUES: Unremarkable. No discrete abdominal or pelvic wall hernia. VASCULATURE: See above. LYMPH NODES: Unremarkable. No enlarged lymph nodes. CT/Abdomen/Pelvis without Cont IMPRESSION: 1. Stone measuring 1.3 x 2 x 1.2 cm and the left renal pelvis with mild left hydronephrosis. 2. Coronary artery disease. 3. Subsegmental atelectasis in the lung bases. 4. At least two tiny nonobstructing calculi in the right kidney and a nonobstructing calculus in the left kidney measuring 1 cm. 5. Hysterectomy. 6. Scattered diverticula without diverticulitis. Electronically Signed: Gerry Marmolejo MD at 4:38 EST ,
[2024-07-08 03:36] LABS: Absolute Lymphocyte Count 2.24 X10^3/uL (0.83-4.51); Absolute Neutrophil Count 4.6 X10^3/uL (2.0-7.7); Basophil# 0.11 X10^3/uL; Basophil% 1.3 % (0-1); Eosinophils% 4.8 % (0-5); Hematocrit 41.2 % (37-47); Hemoglobin 13.8 g/dL (12.0-15.0); Lymphocyte # 2.24 X10^3/ul (0.83-4.51); Lymphocyte % 27.2 % (19-41); Mean Corp Hgb Conc 33.5 g/dL (32-36); Mean Corpuscular Hgb 30.1 pg (27.0-32.0); Mean Platelet Vol. 10.6 fl (6.2-12.0); Monocyte# 0.91 X10^3/uL; NRBC Flagged by Analyzer 0 % (0-5); Neutrophil # 4.55 X10^3/uL (2.7-7.7); Neutrophil % 55.2 % (47-70); Platelet Count 267 K/mm3 (150-450); RBC Distribution Width CV 13.4 % (11.6-14.6); RBC Distribution Width SD 43.4 fl (35.1-43.9); Red Blood Count 4.58 M/mm3 (4.2-5.4); White Blood Count 8.3 K/mm3 (4.4-11.0)
[2024-07-08] MEDS: Ketorolac 15 MG/ML Vial IV (03:36)
[2024-07-08] MEDS: 0.9% Normal Saline (1000mL) 1,000 ML 999 ML IV (03:36)
[2024-07-08 03:41] VITALS: BP 95/54; PULSE 76; RESP 16; O2SAT 94
[2024-07-08 03:51] LABS: Mucous, Urine 0 SEEN /hpf (<or=2+); Red Blood Cells-Urine 0 SEEN /hpf (0-5); Squamous Epithelial Cells - UA 0 SEEN /hpf (5-10)
[2024-07-08 03:52] LABS: Color, Urine Yellow (Yellow); Glucose, Dipstick 1000 mg/dl (Normal); Ketone-Dipstick Negative (Negative); Leukocyte Esterase-Dipstick 500 /ul (Negative); Nitrite-Dipstick Negative (Negative); Occult Blood-Urine 25 /ul (Negative); Protein-Dipstick 30 mg/dl (Negative); Urine Bilirubin Dipstick Negative (Negative); Urine Clarity Sl. Cloudy (Clear); Urine Urobilinogen 1 mg/dl (Normal)
[2024-07-08 03:56] LABS: Anion Gap 6 (5-15); BUN 28 mg/dL (7-18); BUN/Creat Ratio 32.4 RATIO (10-20); Calcium,Total 9.9 mg/dL (8.5-10.1); Chloride 102 mmol/L (98-107); Creatinine, Serum 0.86 mg/dL (0.55-1.02); EST Glomerular Filtration Rate 69 mL/min (>60); Est Glom Filt Rate - Afr Amer 84 mL/min (>60); Estimated Creatinine Clearance 61.46 ml/min; Glucose 151 mg/dL (74-106); Potassium 3.9 mmol/L (3.5-5.1); Sodium Level 138 mmol/L (136-145)
[2024-07-08 04:15] LABS: Bacteria 1+ /hpf (None Seen); White Blood Cells 0-5 SEEN /hpf (0-5)
--- NOTE | 2024-07-08 04:59 | EX.ED.DYSGE1 ---
HPI History of Present Illness Chief Complaint: Flank Pain Narrative Narrative: Patient is a 69-year-old female with past medical history of insulin-dependent diabetes hyperlipidemia and hypertension. She states she is also had kidney stones multiple years ago. She states this evening she developed pain along the left abdomen and left back. She reports there was no trauma or excessive activity and the pain felt similar nature to her previous kidney stone. Therefore with concern for this once again she presents for evaluation [facility] Medical History Wears glasses Arthritis High cholesterol Dietary restriction History of IBS Non-smoker History of edema Diabetes Hypertension History of kidney stones Home Medications ?Medication ?Instructions ?Recorded ?Last Taken ?Type ascorbic acid (vitamin C) 100 mg 100 mg PO DAILY 05/02/23 Unknown History tablet (Vitamin C) aspirin 81 mg capsule 81 mg PO DAILY 05/02/23 04/29/23 History cholecalciferol (vitamin D3) 1,250 1,250 mcg PO QWEEK 05/02/23 Unknown History mcg (50,000 unit) capsule empagliflozin 25 mg tablet 25 mg PO DAILY 05/02/23 Unknown History (Jardiance) insulin degludec 200 unit/mL (3 65 unit subcut DAILY 05/02/23 Unknown History mL) subcutaneous pen (Tresiba FlexTouch U-200 insulin) insulin degludec 200 unit/mL (3 70 unit subcut QHS 05/02/23 Unknown History mL) subcutaneous pen (Tresiba FlexTouch U-200 insulin) lisinopril 20 1 tab PO DAILY 05/02/23 Unknown History mg-hydrochlorothiazide 12.5 mg tablet metformin 500 mg tablet,extended 1,000 mg PO BID 05/02/23 Unknown History release 24 hr multivitamin (Daily Multi-Vitamin 1 tab PO DAILY 05/02/23 Unknown History tablet) simvastatin 40 mg tablet 40 mg PO DAILY 05/02/23 Unknown History calcium 500 mg (as 1 tab PO DAILY 90 days #90 tabs 05/07/23 Unknown Rx carbonate)-vitamin D3 15 mcg (600 unit) tablet (Os-Khoi 500 + D3) docusate sodium 100 mg capsule 100 mg PO DAILY 10 days #10 caps 05/07/23 Unknown Rx (Colace) albuterol sulfate 90 mcg/actuation 2 puff inhalation Q4H PRN PRN 07/14/23 Unknown Rx aerosol inhaler (Ventolin HFA) Wheezing/SOB #1 device ascorbic acid (vitamin C) 1,000 mg 500 mg PO DAILY 07/14/23 Unknown History tablet (Vitamin C) benzonatate 100 mg capsule 100 mg PO Q8H PRN cough 07/14/23 Unknown History promethazine 6.25 mg/5 mL oral 6.25 mg PO Q6H PRN cough 07/14/23 Unknown History syrup cephalexin 500 mg capsule 500 mg PO TID 7 days #21 caps 07/08/24 Unknown Rx ketorolac 10 mg tablet 10 mg PO 4X/DAY PRN pain 5 days 07/08/24 Unknown Rx #20 tabs ondansetron 4 mg disintegrating 4 mg PO TID PRN nausea and 07/08/24 Unknown Rx tablet vomiting #21 tabs oxycodone-acetaminophen 5 mg-325 1 tab PO Q6H PRN pain 5 days #20 07/08/24 Unknown Rx mg tablet (Percocet) tabs tamsulosin 0.4 mg capsule (Flomax) 0.4 mg PO DAILY 14 days #14 caps 07/08/24 Unknown Rx Allergy/AdvReac Type Severity Reaction Status Date / Time cashew nut (cashews) AdvReac KIDNEY Verified 07/08/24 01:46 STONES peanut AdvReac KIDNEY Verified 07/08/24 01:46 STONES Surgical History History of hysterectomy Social History Smoking Status: Never smoker ROS ROS ED Constitutional Constitutional ED: Denies chills or fever(s) ENT ENT ED: Denies sore throat Cardiovascular Cardiovascular: Denies chest pain Respiratory/Chest Respiratory/Chest: Denies cough or dyspnea Gastrointestinal Gastrointestinal: Reports abdominal pain and nausea; Denies diarrhea or vomiting Genitourinary Genitourinary ED: Denies dysuria or urinary frequency Musculoskeletal Musculoskeletal: Reports back pain Integumentary Denies rash Neurologic Neurologic: Denies headache(s) Hematologic/Lymphatic Hematologic/Lymphatic: Denies easy bleeding or easy bruising EXAM Physical Exam Const Vital Signs: 07/08/24 01:46 07/08/24 03:41 Temperature 98.1 F Temperature Source Oral Pulse Rate 84 76 Respiratory Rate 15 16 Blood Pressure 123/90 H 95/54 L Blood Pressure Mean 101 67 Pulse Ox 94 94 Oxygen Delivery Method Room Air Room Air Positive well nourished, well developed and obese General Appearance ED: well developed; Negative for pallor Nutritional Appearance: obese HEENT HEENT Narrative: Normocephalic atraumatic Eyes PERRL and EOMs intact bilaterally General Eye ED: Negative for scleral icterus Neck supple Neck Narrative: No nuchal rigidity or meningeal signs Resp normal respiratory effort and clear to auscultation bilaterally Cardio regular rate and regular rhythm Rate: other Other Details: Radial and carotid pulses are equal and symmetric GI non-distended and no masses GI Narrative: Abdomen is soft and nondistended with normal active bowel sounds Patient has pain with palpation along the left upper lateral abdomen without voluntary guarding or rigidity No pulsatile mass or fluid wave Auscultation: normoactive bowel sounds Palpation: soft Back/Spine Back/Spine Narrative: Positive left CVA pain noted Extremity normal to inspection Neuro oriented x3, CN's II-XII intact bilaterally and no sensory deficits noted Sensorium / Orientation: alert Motor Exam: strength 5/5 throughout Psych mental status grossly normal Skin no rashes or lesions noted and no wounds Skin Narrative: No overlying soft tissue changes to suggest trauma or infection General Skin Exam: Negative for jaundice or pallor MDM MDM MDM Narrative Medical decision making narrative: Patient presented to the ER with stable vitals. Her history and exam is concerning for kidney stone but as this could also be UTI/pyelonephritis or atypical presentation for pancreatitis or biliary colic I did elect to perform basic laboratory studies and a noncontrast CT. as most likely diagnosis is kidney stone I did not feel the need to check lipase or liver enzymes. The patient's blood work revealed no signs of acute kidney injury or leukocytosis or left shift. Her urine showed questionable infection as there was +1 bacteria but no white blood cells. CT scan confirmed a large kidney stone just outside the left kidney. The patient will most likely not be able to pass the stone but as she does not have urosepsis or acute kidney injury there is no need for emergent urology consultation. Patient will be placed on symptomatic medications and will follow-up urology to discuss further treatment as an outpatient. She agrees to return to the ER if symptoms worsen or she develops a fever and understands the plan of care and is acceptable with it. History & Record Review Discussion w/independent historian: Patient Lab Data Attestation: I reviewed the patient's lab results. Labs: Laboratory Results - last 24 hr 07/08/24 07/08/24 01:58 03:48 WBC 8.3 RBC 4.58 Hgb 13.8 Hct 41.2 MCV 90.0 MCH 30.1 MCHC 33.5 RDW Std Deviation 43.4 RDW Coeff of Alexandra 13.4 Plt Count 267 MPV 10.6 Immature Gran % (Auto) 0.500 Neut % (Auto) 55.2 Lymph % (Auto) 27.2 Yell % (Auto) 11.0 H Eos % (Auto) 4.8 Baso % (Auto) 1.3 H Absolute Neuts (auto) 4.6 Absolute Lymphs (auto) 2.24 Nucleated RBC % 0 Sodium 138 Potassium 3.9 Chloride 102 Carbon Dioxide 29.0 Anion Gap 6 BUN 28 H Creatinine 0.86 Estim Creat Clear Calc 61.46 Est GFR (MDRD) Af Amer 84 Est GFR (MDRD) Non-Af 69 BUN/Creatinine Ratio 32.4 H Glucose 151 H Calcium 9.9 Urine Color Yellow Urine Clarity Sl. Cloudy Urine pH 5.0 Ur Specific [place] 1.020 Urine Protein 30 H Urine Glucose (UA) 1000 H Urine Ketones Negative Urine Occult Blood 25 H Urine Nitrite Negative Urine Bilirubin Negative Urine Urobilinogen 1 H Ur Leukocyte Esterase 500 H Urine RBC 0 SEEN Urine WBC 0-5 SEEN Ur Squamous Epith Cells 0 SEEN Urine Bacteria 1+ Urine Mucus 0 SEEN Radiography Diagnostic Testing: Clinical Impression(s) from Imaging Studies Abdomen/Pelvis CT 07/08/24 03:25 IMPRESSION: 1. Stone measuring 1.3 x 2 x 1.2 cm and the left renal pelvis with mild left hydronephrosis. 2. Coronary artery disease. 3. Subsegmental atelectasis in the lung bases. 4. At least two tiny nonobstructing calculi in the right kidney and a nonobstructing calculus in the left kidney measuring 1 cm. 5. Hysterectomy. 6. Scattered diverticula without diverticulitis. Electronically Signed: Gerry Marmolejo MD at 4:38 EST , Discharge Plan Triage Chief Complaint: Flank Pain ED Provider: Emerson Villalobos Dx/Rx/DC Orders Clinical Impression: Kidney stone, Renal colic, Hypertension, Insulin dependent diabetes mellitus Instructions: ED Kidney Stone with Pain Prescriptions: New cephalexin 500 mg capsule 500 mg PO TID 7 Days Qty: 21 0RF tamsulosin [Flomax] 0.4 mg capsule 0.4 mg PO DAILY 14 Days Qty: 14 0RF ondansetron 4 mg tablet,disintegrating 4 mg PO TID PRN (Reason: nausea and vomiting) Qty: 21 0RF ketorolac 10 mg tablet 10 mg PO 4X/DAY PRN (Reason: pain) 5 Days Qty: 20 0RF oxycodone-acetaminophen [Percocet] 5-325 mg tablet 1 tab PO Q6H PRN (Reason: pain) 5 Days Qty: 20 0RF No Action benzonatate 100 mg capsule 100 mg PO Q8H PRN (Reason: cough) Patient Comments: Take 1 capsule by mouth every 8 hours as needed for cough for up to 15 days. promethazine 6.25 mg/5 mL syrup 6.25 mg PO Q6H PRN (Reason: cough) Rx Instructions: 3 doses during day; last dose no later than 4 hr before bedtime ascorbic acid (vitamin C) [Vitamin C] 1,000 mg tablet 500 mg PO DAILY Patient Comments: only supposed to take 500 mg albuterol sulfate [Ventolin HFA] 90 mcg/actuation HFA aerosol inhaler 2 puff inhalation Q4H PRN PRN (Reason: Wheezing/SOB) Qty: 1 0RF lisinopril-hydrochlorothiazide 20-12.5 mg tablet 1 tab PO DAILY Patient Comments: TAKE 1 TABLET BY MOUTH DAILY simvastatin 40 mg tablet 40 mg PO DAILY Patient Comments: TAKE 1 TABLET BY MOUTH EVERY NIGHT AT BEDTIME metformin 500 mg tablet extended release 24 hr 1,000 mg PO BID Patient Comments: TAKE 4 TABLETS BY MOUTH EVERY DAY Vitamin C 100 mg tablet 100 mg PO DAILY aspirin 81 mg capsule 81 mg PO DAILY cholecalciferol (vitamin D3) 1,250 mcg (50,000 unit) capsule 1,250 mcg PO QWEEK Patient Comments: TAKE 1 CAPSULE BY MOUTH EVERY week Jardiance 25 mg tablet 25 mg PO DAILY insulin degludec [Tresiba FlexTouch U-200] 200 unit/mL (3 mL) insulin pen 65 unit subcut DAILY Rx Instructions: MORNING insulin degludec [Tresiba FlexTouch U-200] 200 unit/mL (3 mL) insulin pen 70 unit subcut QHS multivitamin [Daily Multi-Vitamin] Tablet 1 tab PO DAILY docusate sodium [Colace] 100 mg capsule 100 mg PO DAILY 10 Days Qty: 10 0RF calcium carbonate-vitamin D3 [Os-Khoi 500 + D3] 500 mg-15 mcg (600 unit) tablet 1 tab PO DAILY 90 Days Qty: 90 0RF Primary Care Provider: Lamar Granados Referrals: Jessica Hebert MD [Med Staff - Active Staff] - Lamar Granados DO [Primary Care Provider] - Activity Restrictions/Additional Instructions: You have a large kidney stone that is 1 x 2 x 1 cm in size. This most likely will not pass on its own. Follow-up with urology to discuss further treatment options. If your pain is uncontrolled with the provided medication or he develop a fever or have any further concerns return to the ER for repeat evaluation. Print Language: Bengali Disposition Disposition: Home, Self Care
[2024-07-08] MEDS: Ondansetron ODT 4 MG Tablet PO (05:04)
[2024-07-08] MEDS: Cephalexin 250 MG Capsule 500 MG PO (05:04)
[2024-07-08 05:13] VITALS: BP 125/74; PULSE 89; RESP 18; TEMP 36.9; O2SAT 96
== END 2024-07-08 05:17 | disposition home or self-care (01) ==
PROVIDERS: Emergency Provider Emergency Medicine; PCP Family Medicine; Visit Provider Emergency Medicine
DX: N13.2 Hydronephrosis with renal and ureteral calculous obstruction (principal); Z79.4 Long term (current) use of insulin; E11.9 Type 2 diabetes mellitus without complications; I10 Essential (primary) hypertension; E78.00 Pure hypercholesterolemia, unspecified; E66.9 Obesity, unspecified; Z68.39 Body mass index [BMI] 39.0-39.9, adult; Z79.82 Long term (current) use of aspirin; Z79.84 Long term (current) use of oral hypoglycemic drugs; Z79.899 Other long term (current) drug therapy
CPT/HCPCS: 74176; 80048; 81001; 85025; 96361; 96374; 99284; A4216

== ENCOUNTER 2024-07-24 07:06 | Day surgery (SDC) | payer MEDICARE, SELFPAY ==
[2024-07-24] VITALS (12 sets, daily range): BP systolic 120–189; BP diastolic 72–162; PULSE 91–98; RESP 16–20; TEMP 36.1–36.6; O2SAT 84–98; BMI 37.6
[2024-07-24] MEDS: 0.9% Normal Saline (1000mL) 1,000 ML 15 ML IV (07:57)
--- NOTE | 2024-07-24 07:58 | PCM.PRE.AN2 ---
ASA Classification* ASA Classification ASA Classification: 2 Assessment & Plan Anesthesia* Anesthesia Assessment Anesthesia Assessment: Discussed sedation and/or anesthesia options, risks, benefits, and alternatives with patient/parents/legal guardian/POA. Questions invited. The patient/parents/legal guardian/POA seems to understand and agrees to proceed with anesthesia plan. Reviewed the physical assessment, medical history, allergy history and patient home medications list prior to surgery/procedure/anesthetic and documented any changes. Performed airway and anesthesia risk assessments. Anesthesia Type Anesthesia Type: General Anesthesia Focused Assessment* Temperature: 97.7 F Pulse Rate: 96 Blood Pressure: 128/72 Respiratory Rate: 16 Pulse Ox: 97 Airway Assessment Mouth opens: >3 cm Mallampati Score: II Focused Labs Anesthesia Preop lab: CBC WBC 8.3 K/mm3 (4.4-11.0) 07/08/24 01:58 RBC 4.58 M/mm3 (4.2-5.4) 07/08/24 01:58 Hgb 13.8 g/dL (12.0-15.0) 07/08/24 01:58 Hct 41.2 % (37-47) 07/08/24 01:58 Plt Count 267 K/mm3 (150-450) 07/08/24 01:58 CHEMISTRY Potassium 3.9 mmol/L (3.5-5.1) 07/08/24 01:58 Sodium 138 mmol/L (136-145) 07/08/24 01:58 Magnesium 2.0 mg/dL (1.6-2.6) 05/02/23 14:49 BUN 28 mg/dL (7-18) H 07/08/24 01:58 Creatinine 0.86 mg/dL (0.55-1.02) 07/08/24 01:58 Glucose 151 mg/dL (74-106) H 07/08/24 01:58 POC Glucose 104 mg/dL (74-106) 05/07/23 09:29 COAG Pre-Assessment Diagnosis/Proposed Procedure Planned Operative Procedure(s): CYSTO LEFT STENT LEFT ESWL Anesthesia History Anesthesia History - muskrat trapper: Anesthesia History - muskrat trapper Hx Hospitalization No 07/21/24 14:32 Any Problems With Anesthesia Yes: SLOW TO AWAKEN 07/21/24 14:32 Cholinesterase deficiency No 07/21/24 14:32 You/Your Family Experience No 07/21/24 14:32 fever (hyperthermia) with Relationship Recent Exposure to Contagious No 07/24/24 07:51 Disease Does patient have nerve No 07/21/24 14:32 stimulator Patient instructed to have device shut off --Does patient have Pacemaker No 07/24/24 07:51 or ICD? When Was Last Pacemaker Check QUESTION #4 FULL TEXT: You/Your Family Experience fever (hyperthermia) with Anesthesia Last Oral Intake Last Oral intake: Last Oral Intake NPO since 23:00 07/24/24 07:51 Meds taken in AM with sips of water? Meds patient instructed to take am of surgery PONV PONV - muskrat trapper: PONV - muskrat trapper Female Yes 07/21/24 14:32 HX of Motion Sickness No 07/21/24 14:32 HX of N/V After Surgery No 07/21/24 14:32 Non-Smoker Yes 07/21/24 14:32 Duration of Surgery greater Yes 07/21/24 14:32 than 60 minutes Number of Risk Factors 3 07/21/24 14:32 PONV Score Moderate Risk 07/21/24 14:32 Height & Weight Height & Weight: Anesthesia: Height & Weight Height 4 ft 11 in 07/24/24 07:51 Weight: 84.5 kg 07/24/24 07:51 Body Mass Index (BMI) 37.6 07/24/24 07:51 Respiratory Assessment Respiratory Assessment - muskrat trapper: Respiratory Tract Infection Hx - muskrat trapper Hx Respiratory Tract Infection No 07/21/24 14:32 STOP Sleep Apnea STOP Sleep Apnea - muskrat trapper: STOP Sleep Apnea - muskrat trapper Hx Hypertension Yes: CONTROLLED WITH MED 07/21/24 14:32 Hx Sleep Apnea No 07/21/24 14:32 CPAP BIPAP Do you snore loudly (louder No 07/21/24 14:32 than talking or can be heard Do you often feel tired/ Yes 07/21/24 14:32 fatigued/ sleepy during daytime? Has anyone observed you stop No 07/21/24 14:32 breathing during sleep? STOP Results Positive 07/21/24 14:32 QUESTION #5 FULL TEXT : Do you snore loudly (louder than talking or can be heard through closed doors)? 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 Specify any problems Hx of Preganancy in last 3 No 07/21/24 14:32 Months Nurse Filling Out Transfusion DSCHRIBER 07/21/24 14:32 & Questions: Date: 07/21/24 07/21/24 14:32 Time: 14:35 07/21/24 14:32 Patient unable to answer at this time (ie. confused, unrespo /Reproduction History /Reproductive History - muskrat trapper: /Reproductive Hx- muskrat trapper Hx Now No 07/21/24 14:32 Gestational Age (in weeks): EDC: Hx Hx Para Hx Section SAB No 07/21/24 14:32 Active Medications Active Medications: Current Medications Generic Name Dose Route Start Last Admin Trade Name Freq PRN Reason Stop Dose Admin Cefazolin Sodium 2 gm/ N/A 20 mls @ 400 mls/hr 07/24/24 09:15 IV 07/24/24 09:17 PREOP ONE Sodium Chloride 1,000 mls @ 15 mls/hr 07/24/24 07:20 IV 07/29/24 20:39 .Q48H [facility] Protocol PFSH Medical History Post-menopausal Anxiety Insulin dependent diabetes mellitus Ambulates with cane Restless legs Back pain Constipation Leg cramps History of edema Wears glasses Arthritis High cholesterol Dietary restriction Non-smoker Hypertension Home Medications ?Medication ?Instructions ?Recorded ?Last Taken ?Type cholecalciferol (vitamin D3) 1,250 1,250 mcg PO QWEEK 05/02/23 Unknown History mcg (50,000 unit) capsule empagliflozin 25 mg tablet 25 mg PO DAILY 05/02/23 07/18/24 History (Jardiance) insulin degludec 200 unit/mL (3 62 unit subcut QHS 05/02/23 Unknown History mL) subcutaneous pen (Tresiba FlexTouch U-200 insulin) lisinopril 20 1 tab PO DAILY 05/02/23 Unknown History mg-hydrochlorothiazide 12.5 mg tablet metformin 500 mg tablet,extended 1,000 mg PO BID 05/02/23 Unknown History release 24 hr simvastatin 40 mg tablet 40 mg PO QHS 05/02/23 Unknown History albuterol sulfate 90 mcg/actuation 2 puff inhalation Q4H PRN PRN 07/14/23 Unknown Rx aerosol inhaler (Ventolin HFA) Wheezing/SOB #1 device ascorbic acid (vitamin C) 1,000 mg 500 mg PO DAILY PRN SUPPLEMENT 07/14/23 Unknown History tablet (Vitamin C) ondansetron 4 mg disintegrating 4 mg PO TID PRN nausea and 07/08/24 Unknown Rx tablet vomiting #21 tabs oxycodone-acetaminophen 5 mg-325 1 tab PO Q6H PRN pain 5 days #20 07/08/24 Unknown Rx mg tablet (Percocet) tabs docusate sodium 100 mg capsule 100 mg PO TID 07/21/24 Unknown History (Colace) glipizide 10 mg tablet, extended 10 mg PO DAILY 07/21/24 Unknown History release 24 hr Allergy/AdvReac Type Severity Reaction Status Date / Time cashew nut (cashews) AdvReac KIDNEY Verified 07/24/24 07:51 STONES peanut AdvReac KIDNEY Verified 07/24/24 07:51 STONES spinach AdvReac kidney Verified 07/24/24 07:51 stones Surgical History History of cystoscopy Hx of eye surgery Hx of foot surgery History of hysterectomy Social History Smoking Status: Never smoker Review of Systems (Anesthesia) ROS Narrative System reviewed and no additional complaints, except as documented.
[2024-07-24 08:19] LABS: Bedside Glucose 117 mg/dL (74-106)
--- NOTE | 2024-07-24 09:51 | EX.PCM.DISCH ---
Discharge Instructions Diet Discharge Diet: No restrictions Activity Discharge Activity: Return to Normal Activity Dressing / Incision Call your doctor if you observe: Fever of 101 or Higher, Inability to urinate and Inability to have a bowel movement Follow Up Care Please Follow Up With: Jessica Hebert MD When: The office will reach out to schedule the next procedure. Test Results: Test results from this visit will be discussed in further detail at your follow-up appointment, if applicable. Discharge Plan Admission Attending Provider: Jessica Hebert Primary Care Provider: Lamar Granados Instructions Print Language: Kiswahili Discharge Orders/Prescriptions Prescriptions: New ondansetron 8 mg tablet,disintegrating 8 mg PO Q8H PRN (Reason: nausea and vomiting) Qty: 10 0RF oxycodone-acetaminophen 5-325 mg tablet 1 tab PO Q8H PRN (Reason: pain) 3 Days Qty: 10 0RF cephalexin 500 mg capsule 500 mg PO Q12 3 Days Qty: 6 0RF phenazopyridine 100 mg tablet 100 mg PO TID Qty: 30 3RF Continued ascorbic acid (vitamin C) [Vitamin C] 1,000 mg tablet 500 mg PO DAILY PRN (Reason: SUPPLEMENT) Patient Comments: only supposed to take 500 mg albuterol sulfate [Ventolin HFA] 90 mcg/actuation HFA aerosol inhaler 2 puff inhalation Q4H PRN PRN (Reason: Wheezing/SOB) Qty: 1 0RF lisinopril-hydrochlorothiazide 20-12.5 mg tablet 1 tab PO DAILY Patient Comments: TAKE 1 TABLET BY MOUTH DAILY simvastatin 40 mg tablet 40 mg PO QHS Patient Comments: TAKE 1 TABLET BY MOUTH EVERY NIGHT AT BEDTIME metformin 500 mg tablet extended release 24 hr 1,000 mg PO BID Patient Comments: TAKE 4 TABLETS BY MOUTH EVERY DAY cholecalciferol (vitamin D3) 1,250 mcg (50,000 unit) capsule 1,250 mcg PO QWEEK Patient Comments: TAKE 1 CAPSULE BY MOUTH EVERY week Jardiance 25 mg tablet 25 mg PO DAILY insulin degludec [Tresiba FlexTouch U-200] 200 unit/mL (3 mL) insulin pen 62 unit subcut QHS ondansetron 4 mg tablet,disintegrating 4 mg PO TID PRN (Reason: nausea and vomiting) Qty: 21 0RF oxycodone-acetaminophen [Percocet] 5-325 mg tablet 1 tab PO Q6H PRN (Reason: pain) 5 Days Qty: 20 0RF glipizide 10 mg tablet extended release 24hr 10 mg PO DAILY docusate sodium [Colace] 100 mg capsule 100 mg PO TID Referrals / Follow Up: Lamar Granados DO [Primary Care Provider] - Disposition Disposition (needs filled in before D/C Order can be placed): Home, Self Care
--- NOTE | 2024-07-24 09:55 | PCM.OPRPT ---
Operative Report (Standard) Operative Information Date of Procedure: 07/24/24 Pre-Operative Diagnosis: Left renal and left UPJ calculus Post-Operative Diagnosis: same Surgery/Procedure Performed: Cystoscopy with left ureteral stent, left extracorporeal shockwave lithotripsy of stone at the UPJ pattern ruler: No Type of Anesthesia: General RN Documented Start/Stop Times: Operation Date: 07/24/24 09:15 Case Time Into Pre-Op 07/24/24 07:15 Out of Pre-Op 07/24/24 09:45 Anesthesia Start 07/24/24 09:48 Into Room 07/24/24 09:48 Procedure Start 07/24/24 10:06 Procedure End 07/24/24 10:55 Anesthesia End 07/24/24 11:00 Out of Room 07/24/24 11:00 Into Recovery 07/24/24 11:03 Out of Recovery 07/24/24 11:54 Into Phase II Recovery 07/24/24 11:55 Procedure Start Time: 10:06 Procedure Stop Time: 10:55 Select all DRAINS/GRAFTS/IMPLANTS that apply: Drains Drain details: 6 Latvian by 20 cm JJ stent Estimated Blood Loss: <5cc Specimen collected: No Description of surgery: The patient is a 69-year-old female with a large left UPJ and renal stones. She presents for surgical intervention. Informed consent was obtained. She was taken to the operating room and placed on the lithotripsy table. Anesthesia monitored the head, neck, airway, IV access and vital signs throughout the case. Once anesthesia was appropriately administered, she was placed into dorsolithotomy position was prepped and draped in usual sterile fashion. The cystoscope was inserted through the urethra under direct visualization into the urinary bladder. The bladder mucosa was visualized in its entirety finding no evidence of mass, erythema, ulceration or foreign body. The left ureteral orifice was intubated with a 0.035 Glidewire which advanced into the renal pelvis is seen on fluoroscopy. A 6 Latvian 20 cm JJ stent was placed over the wire with good positioning in the renal pelvis as well as the urinary bladder. Her bladder was emptied and the cystoscope was then removed. She was then repositioned on the lithotripsy table and taken out of dorsolithotomy and placed into supine position. The UPJ stone was easily visualized. 3000 shocks were applied and the stone appeared to be fragmented at the conclusion of the case. She was awakened and taken to the recovery room in good condition. There were no complications during this procedure. Surgical Findings: Stone easily visualized, fragmented at the end of the procedure Complications Complications: No Admit VTE Documentation VTE Present on Admission: Yes VTE Mechan Device Prophylaxis: SCD's VTE Pharm Prophylaxis ordered?: No Reason prophylaxis not ordered: Treatment Not Indicated
[2024-07-24] MEDS: Cefazolin 2 GM in Syringe IV (10:05)
--- NOTE | 2024-07-24 11:06 | PCM.POST.ANE ---
Anesthesia: Postop Eval I Current Vital Signs Temperature: 97 F Pulse Rate: 98 Blood Pressure: 162/112 Respiratory Rate: 16 Pulse Ox: 98 Oxygen Delivery Method: Room Air Assessment Airway patent: Yes Spontaneous unlabored respirations: Yes Mental status: Awake nausea: No Vomiting: No Anesthesia Complication: No Fluid Hydration Crystalloid volume administer (ml): 800 Total IV fluid infused: 800 Progress Note Anesthesia document: Postop Eval 1 completed: Yes
--- NOTE | 2024-07-24 12:04 | POSTOPAN2_ITS ---
Anesthesia Postop Eval I Sum Postop Eval Completion status Anesthesia document: Postop Eval 1 completed: Yes Anesthesia Postop Eval I Summary Anesthesia Postop Eval I Summary: Anesthesia Postop Eval I: Assessment Summary Airway patent Yes 07/24/24 11:07 DIRECTOR EXPERIMENTAL MEDICINE.JSWI Spontaneous unlabored Yes 07/24/24 11:07 DIRECTOR EXPERIMENTAL MEDICINE.JSWI respirations Mental status Awake 07/24/24 11:07 DIRECTOR EXPERIMENTAL MEDICINE.JSWI nausea No 07/24/24 11:07 DIRECTOR EXPERIMENTAL MEDICINE.JSWI Vomiting No 07/24/24 11:07 DIRECTOR EXPERIMENTAL MEDICINE.JSWI Anesthesia Postop Eval I: Fluid Summary Crystalloid volume administer 800 07/24/24 11:07 DIRECTOR EXPERIMENTAL MEDICINE.JSWI (ml) Colloids volume administered ( ml) Blood Product volume administered (ml) Total IV fluid infused 800 07/24/24 11:07 DIRECTOR EXPERIMENTAL MEDICINE.ROGERWI Anesthesia Postop Eval I: Summary Notes Anesthesia Complication No 07/24/24 11:07 DIRECTOR EXPERIMENTAL MEDICINE.JSWI Anesthesia Complication Comment: Post-operative progress note Anesthesia: Postop Eval II Evaluation Mental status: Awake Pain Level: 0 nausea: No Vomiting: No
--- NOTE | 2024-07-24 12:04 | PCM.POSTANE2 ---
Anesthesia Postop Eval I Sum Postop Eval Completion status Anesthesia document: Postop Eval 1 completed: Yes Anesthesia Postop Eval I Summary Anesthesia Postop Eval I Summary: Anesthesia Postop Eval I: Assessment Summary Airway patent Yes 07/24/24 11:07 US MARKETING DIRECTOR.JSWI Spontaneous unlabored Yes 07/24/24 11:07 US MARKETING DIRECTOR.JSWI respirations Mental status Awake 07/24/24 11:07 US MARKETING DIRECTOR.JSWI nausea No 07/24/24 11:07 US MARKETING DIRECTOR.JSWI Vomiting No 07/24/24 11:07 US MARKETING DIRECTOR.JSWI Anesthesia Postop Eval I: Fluid Summary Crystalloid volume administer 800 07/24/24 11:07 US MARKETING DIRECTOR.JSWI (ml) Colloids volume administered ( ml) Blood Product volume administered (ml) Total IV fluid infused 800 07/24/24 11:07 US MARKETING DIRECTOR.ROGERWI Anesthesia Postop Eval I: Summary Notes Anesthesia Complication No 07/24/24 11:07 US MARKETING DIRECTOR.JSWI Anesthesia Complication Comment: Post-operative progress note Anesthesia: Postop Eval II Evaluation Mental status: Awake Pain Level: 0 nausea: No Vomiting: No
[2024-07-24] MEDS: Phenazopyridine 95 MG Tablet 190 MG PO (12:32)
[2024-07-24] MEDS: Ibuprofen 600 MG Tablet PO (12:33)
== END 2024-07-24 13:20 | disposition home or self-care (01) ==
LOC: SDC 07:06 → AC 07:10
PROVIDERS: PCP Family Medicine; Referring Provider Urology; Visit Provider Urology
PROC: (CPT 50590; principal; 2024-07-24 09:05)
DX: N13.2 Hydronephrosis with renal and ureteral calculous obstruction (principal); E11.9 Type 2 diabetes mellitus without complications; Z79.4 Long term (current) use of insulin; N39.46 Mixed incontinence; N32.81 Overactive bladder; I10 Essential (primary) hypertension; E78.00 Pure hypercholesterolemia, unspecified; Z79.84 Long term (current) use of oral hypoglycemic drugs; Z79.899 Other long term (current) drug therapy
CPT/HCPCS: 52332; 50590; 00910; 82962; A4216; J2405

== ENCOUNTER 2024-08-14 09:52 | Day surgery (SDC) | payer MEDICARE, SELFPAY ==
[2024-08-14] VITALS (13 sets, daily range): BP systolic 148–205; BP diastolic 71–104; PULSE 92–98; RESP 16–20; TEMP 36.3–36.6; O2SAT 83–100; BMI 36.5
[2024-08-14] MEDS: 0.9% Normal Saline (1000mL) 1,000 ML 15 ML IV (10:55)
--- NOTE | 2024-08-14 11:11 | PRE.ANES_ITS ---
ASA Classification* ASA Classification ASA Classification: 2 Assessment & Plan Anesthesia* Anesthesia Assessment Anesthesia Assessment: Discussed sedation and/or anesthesia options, risks, benefits, and alternatives with patient/parents/legal guardian/POA. Questions invited. The patient/parents/legal guardian/POA seems to understand and agrees to proceed with anesthesia plan. Reviewed the physical assessment, medical history, allergy history and patient home medications list prior to surgery/procedure/anesthetic and documented any changes. Performed airway and anesthesia risk assessments. Anesthesia Type Anesthesia Type: General History Source History Obtained from:: Patient and Chart Anesthesia Focused Assessment* Temperature: 97.8 F Pulse Rate: 95 Blood Pressure: 155/71 Respiratory Rate: 17 Pulse Ox: 95 Oxygen Delivery Method: Room Air Airway Assessment Mouth opens: >3 cm Mallampati Score: IV Teeth Condition: Missing (Patient is missing a couple teeth.) Neck Range of motion (ROM): Limited ROM (Somewhat decreased extension) Focused Labs Anesthesia Preop lab: CBC WBC 8.3 K/mm3 (4.4-11.0) 07/08/24 01:58 07/08/24 RBC 4.58 M/mm3 (4.2-5.4) 07/08/24 01:58 07/08/24 Hgb 13.8 g/dL (12.0-15.0) 07/08/24 01:58 07/08/24 Hct 41.2 % (37-47) 07/08/24 01:58 07/08/24 Plt Count 267 K/mm3 (150-450) 07/08/24 01:58 07/08/24 CHEMISTRY Potassium 3.9 mmol/L (3.5-5.1) 07/08/24 01:58 07/08/24 Sodium 138 mmol/L (136-145) 07/08/24 01:58 07/08/24 Magnesium 2.0 mg/dL (1.6-2.6) 05/02/23 14:49 05/02/23 BUN 28 mg/dL (7-18) H 07/08/24 01:58 07/08/24 Creatinine 0.86 mg/dL (0.55-1.02) 07/08/24 01:58 07/08/24 Glucose 151 mg/dL (74-106) H 07/08/24 01:58 07/08/24 POC Glucose 117 mg/dL (74-106) H 07/24/24 07:54 07/24/24 COAG Pre-Assessment Diagnosis/Proposed Procedure Planned Operative Procedure(s): LEFT ESWL Anesthesia History 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 When Was Last Pacemaker Check QUESTION #4 FULL TEXT: You/Your Family Experience fever (hyperthermia) with Anesthesia Last Oral Intake Last Oral intake: Last Oral Intake NPO since 06:00 08/14/24 10:40 Meds taken in AM with sips of water? Meds patient instructed to take am of surgery Any additional information?: Yes NPO since: 06:30 (Patient had chicken broth and apple juice at 6:30 AM) Meds taken in AM with sips of water?: No PONV PONV - permaculture contractor: PONV - permaculture contractor Female Yes 08/06/24 11:58 HX of Motion Sickness No 08/06/24 11:58 HX of N/V After Surgery No 08/06/24 11:58 Non-Smoker Yes 08/06/24 11:58 Duration of Surgery greater Yes 08/06/24 11:58 than 60 minutes Number of Risk Factors 3 08/06/24 11:58 PONV Score Moderate Risk 08/06/24 11:58 Height & Weight Height & Weight: Anesthesia: Height & Weight Height 4 ft 11 in 08/14/24 10:40 Weight: 82 kg 08/14/24 10:40 Body Mass Index (BMI) 36.5 08/14/24 10:40 Respiratory Assessment Respiratory Assessment - permaculture contractor: Respiratory Tract Infection Hx - permaculture contractor Hx Respiratory Tract Infection No 08/06/24 11:58 STOP Sleep Apnea STOP Sleep Apnea - permaculture contractor: STOP Sleep Apnea - permaculture contractor Hx Hypertension Yes: CONTROLLED WITH MED 08/06/24 11:58 Hx Sleep Apnea No 08/06/24 11:58 CPAP BIPAP Do you snore loudly (louder No 08/06/24 11:58 than talking or can be heard Do you often feel tired/ Yes 08/06/24 11:58 fatigued/ sleepy during daytime? Has anyone observed you stop No 08/06/24 11:58 breathing during sleep? STOP Results Positive 08/06/24 11:58 QUESTION #5 FULL TEXT : Do you snore loudly (louder than talking or can be heard through closed doors)? Tobacco Use History Tobacco Use History - permaculture contractor: Tobacco Use History - permaculture contractor Tobacco Use Smoking Status Never smoker 08/06/24 11:58 Hx Tobacco Use No 08/06/24 11:58 Years Smoking Packs Smoked per Day Smoking Cessation Date was within the last 15 years Hx Smoking Cessation Date Hx Smoking Cessation Counseling Hematologic Medial History Hematologic Hx - permaculture contractor: Hematologic Medical Hx - skilled nursing case manager Hx of Blood Transfusion No 08/06/24 11:58 Hx of Transfusion in last 3 No 08/06/24 11:58 Months Date of Last Transfusion (if within last 3 months) Ever experience any problems No 08/06/24 11:58 with transfusion(s)? Specify any problems Hx of Preganancy in last 3 No 08/06/24 11:58 Months Nurse Filling Out Transfusion DSCHRIBER 08/06/24 11:58 & Questions: Date: 08/06/24 08/06/24 11:58 Time: 11:59 08/06/24 11:58 Patient unable to answer at this time (ie. confused, unrespo /Reproduction History /Reproductive History - permaculture contractor: /Reproductive Hx- permaculture contractor Hx Now Gestational Age (in weeks): EDC: Hx Hx Para Hx Section SAB No 08/06/24 11:58 Active Medications Active Medications: Current Medications Generic Name Dose Route Start Last Admin Trade Name Freq PRN Reason Stop Dose Admin Cefazolin Sodium 2 gm/ N/A 20 mls @ 400 mls/hr 08/14/24 12:00 IV 08/14/24 12:02 PREOP ONE Sodium Chloride 1,000 mls @ 15 mls/hr 08/14/24 10:55 08/14/24 10:55 IV 08/20/24 00:14 15 mls/hr .Q48H VALORIE Administration Protocol [facility] Medical History Kidney stones Post-menopausal Anxiety Insulin dependent diabetes mellitus Ambulates with cane Restless legs Back pain Constipation Leg cramps History of edema Wears glasses Arthritis High cholesterol Dietary restriction Non-smoker Hypertension Home Medications ?Medication ?Instructions ?Recorded ?Last Taken ?Type empagliflozin 25 mg tablet 25 mg PO DAILY 05/02/2305/02 History (Jardiance) insulin degludec 200 unit/mL (3 62 unit subcut QHS Unknown History mL) subcutaneous pen (Tresiba FlexTouch U-200 insulin) lisinopril 20 1 tab PO DAILY 05/02/23 Unkn own History mg-hydrochlorothiazide 12.5 mg tablet metformin 500 mg tablet,extended 1,000 mg PO BID 05/02 Unknown History release 24 hr simvastatin 40 mg tablet 40 mg PO QHS 05/02/23 Unknow n History albuterol sulfate 90 mcg/actuation 2 puff inhalation Q 4H PRN PRN 07/14/23 Unknown Rx aerosol inhaler (Ventolin HFA) Wheezing/SOB #1 device ascorbic acid (vitamin C) 1,000 mg 500 mg PO DAILY PRN SUPPLEMENT 07/14/23 Unknown History tablet (Vitamin C) oxycodone-acetaminophen 5 mg-325 1 tab PO Q6H PRN pain 5 days #20 07/08/24 Unknown Rx mg tablet (Percocet) tabs docusate sodium 100 mg capsule 100 mg PO TID 07/21/24 Unknown History (Colace) glipizide 10 mg tablet, extended 10 mg PO DAILY Unknown History release 24 hr ondansetron 8 mg disintegrating 8 mg PO Q8H PRN nausea and 07/24/24 Unknown Rx tablet vomiting #10 tabs Allergy/AdvReac Type Severity Reaction Status Date / Time cashew nut (cashews) AdvReac KIDNEY Verified 08/14/24 10:25 STONES peanut AdvReac KIDNEY Verified 08/14/24 10:25 STONES spinach AdvReac kidney Verified 08/14/24 10:25 stones Surgical History History of cystoscopy History of cystoscopy Hx of eye surgery Hx of foot surgery History of hysterectomy Social History Smoking Status: Never smoker Review of Systems (Anesthesia) ROS Narrative System reviewed and no additional complaints, except as documented.
[2024-08-14] MEDS: Cefazolin 2 GM in Syringe IV (12:02)
[2024-08-14 12:14] LABS: Bedside Glucose 117 mg/dL (74-106)
[2024-08-14 12:14] LABS: Bedside Glucose 115 mg/dL (74-106)
--- NOTE | 2024-08-14 13:37 | PCM.POST.ANE ---
Anesthesia: Postop Eval I Current Vital Signs Temperature: 97.8 F Pulse Rate: 92 Blood Pressure: 148/85 Respiratory Rate: 20 Pulse Ox: 97 Oxygen Delivery Method: Nasal Cannula Oxygen Flow Rate (L/min): 4 Assessment Airway patent: Yes Spontaneous unlabored respirations: Yes Mental status: Awake and Calm nausea: No Vomiting: No Anesthesia Complication: No Fluid Hydration Crystalloid volume administer (ml): 1,100 Total IV fluid infused: 1,100 Progress Note Anesthesia document: Postop Eval 1 completed: Yes
--- NOTE | 2024-08-14 13:58 | EX.PCM.DISCH ---
Discharge Instructions Diet Discharge Diet: No restrictions Activity Discharge Activity: Return to Normal Activity Dressing / Incision Call your doctor if you observe: Fever of 101 or Higher, Inability to urinate and Inability to have a bowel movement Follow Up Care Please Follow Up With: Jessica Hebert MD When: in the office in 2-3 weeks with KUB Test Results: Test results from this visit will be discussed in further detail at your follow-up appointment, if applicable. Discharge Plan Admission Attending Provider: Jessica Hebert Primary Care Provider: Lamar Granados Instructions Print Language: Lithuanian Discharge Orders/Prescriptions Prescriptions: New oxycodone-acetaminophen 5-325 mg tablet 1 tab PO Q8H PRN (Reason: pain) 3 Days Qty: 10 0RF cephalexin 500 mg capsule 500 mg PO Q12 3 Days Qty: 6 0RF phenazopyridine 200 mg tablet 200 mg PO TID PRN (Reason: pain) Qty: 30 3RF Continued ascorbic acid (vitamin C) [Vitamin C] 1,000 mg tablet 500 mg PO DAILY PRN (Reason: SUPPLEMENT) Patient Comments: only supposed to take 500 mg albuterol sulfate [Ventolin HFA] 90 mcg/actuation HFA aerosol inhaler 2 puff inhalation Q4H PRN PRN (Reason: Wheezing/SOB) Qty: 1 0RF lisinopril-hydrochlorothiazide 20-12.5 mg tablet 1 tab PO DAILY Patient Comments: TAKE 1 TABLET BY MOUTH DAILY simvastatin 40 mg tablet 40 mg PO QHS Patient Comments: TAKE 1 TABLET BY MOUTH EVERY NIGHT AT BEDTIME metformin 500 mg tablet extended release 24 hr 1,000 mg PO BID Patient Comments: TAKE 4 TABLETS BY MOUTH EVERY DAY Jardiance 25 mg tablet 25 mg PO DAILY insulin degludec [Tresiba FlexTouch U-200] 200 unit/mL (3 mL) insulin pen 62 unit subcut QHS oxycodone-acetaminophen [Percocet] 5-325 mg tablet 1 tab PO Q6H PRN (Reason: pain) 5 Days Qty: 20 0RF glipizide 10 mg tablet extended release 24hr 10 mg PO DAILY docusate sodium [Colace] 100 mg capsule 100 mg PO TID ondansetron 8 mg tablet,disintegrating 8 mg PO Q8H PRN (Reason: nausea and vomiting) Qty: 10 0RF Referrals / Follow Up: Lamar Granados DO [Primary Care Provider] - Disposition Disposition (needs filled in before D/C Order can be placed): Home, Self Care
--- NOTE | 2024-08-14 14:02 | PCM.OPRPT ---
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: No Type of Anesthesia: General RN Documented Start/Stop Times: Operation Date: 08/14/24 11:55 Case Time Into Pre-Op 08/14/24 10:26 Out of Pre-Op 08/14/24 11:57 Anesthesia Start 08/14/24 12:02 Into Room 08/14/24 12:02 Procedure Start 08/14/24 12:16 Procedure End 08/14/24 13:22 Anesthesia End 08/14/24 13:34 Out of Room 08/14/24 13:34 Into Recovery 08/14/24 13:37 Procedure Start Time: 12:16 Procedure Stop Time: 13:22 Select all DRAINS/GRAFTS/IMPLANTS that apply: None Estimated Blood Loss: 5cc Specimen collected: No Description of surgery: The patient is a 69-year-old female who recently underwent a cystoscopy with left ureteral stent insertion and shockwave lithotripsy of a large UPJ stone. She had a remaining on treated renal stone and now presents for management of this. Informed consent was obtained. The patient was taken to the operating room and placed on the operating room table. Anesthesia monitored the head, neck, airway, IV access and vital signs throughout the case. Once anesthesia was appropriately administered, she was placed on the lithotripsy evaluated with fluoroscopic imaging. A significant amount of stone debris was visualized in the proximal ureter alongside the stent. The decision was made to apply some shockwaves to this area as well as to the large remaining left renal stone. 3000 shocks were applied to the renal stone which appeared to be fragmented at the conclusion of the case. The ureteral debris did improve at the end of 2000 shocks. The patient was then awakened and taken to the recovery room in good condition. There were no complications during this procedure. Surgical Findings: Treatment of ureteral debris proximally in addition to the left renal calculus Complications Complications: No Admit VTE Documentation VTE Present on Admission: Yes VTE Mechan Device Prophylaxis: SCD's VTE Pharm Prophylaxis ordered?: No Reason prophylaxis not ordered: Treatment Not Indicated
--- NOTE | 2024-08-14 14:08 | SUR.PHASEI ---
FREQUENT DEMANDS, MOANING w/ BLOOD PRESSURES. UNABLE TO VOID ON BEDPAN, ASSISTED x 2 STAFF TO BSC TO VOID LARGE AMOUNT BLOODY URINE. CONTINUES TO REQUIRE OXYGEN TO KEEP SPO2 >92%.
--- NOTE | 2024-08-14 15:00 | DCINST_ITS ---
Discharge Instructions Diet Discharge Diet: No restrictions Dressing / Incision Call your doctor if you observe: Fever of 101 or Higher, Inability to urinate and Inability to have a bowel movement Follow Up Care Please Follow Up With: Jessica Hebert MD Test Results: Test results from this visit will be discussed in further detail at your follow- up appointment, if applicable. Discharge Plan Admission Attending Provider: Jessica Hebert Primary Care Provider: Lamar Granados Instructions Print Language: [place] Discharge Orders/Prescriptions Prescriptions: New oxycodone-acetaminophen 5-325 mg tablet 1 tab PO Q8H PRN (Reason: pain) 3 Days Qty: 10 0RF cephalexin 500 mg capsule 500 mg PO Q12 3 Days Qty: 6 0RF phenazopyridine 200 mg tablet 200 mg PO TID PRN (Reason: pain) Qty: 30 3RF oxycodone-acetaminophen 5-325 mg tablet 1 tab PO Q8H PRN (Reason: pain) 3 Days Qty: 10 0RF cephalexin 500 mg capsule 500 mg PO Q12 3 Days Qty: 6 0RF Continued ascorbic acid (vitamin C) [Vitamin C] 1,000 mg tablet 500 mg PO DAILY PRN (Reason: SUPPLEMENT) Patient Comments: only supposed to take 500 mg albuterol sulfate [Ventolin HFA] 90 mcg/actuation HFA aerosol inhaler 2 puff inhalation Q4H PRN PRN (Reason: Wheezing/SOB) Qty: 1 0RF lisinopril-hydrochlorothiazide 20-12.5 mg tablet 1 tab PO DAILY Patient Comments: TAKE 1 TABLET BY MOUTH DAILY simvastatin 40 mg tablet 40 mg PO QHS Patient Comments: TAKE 1 TABLET BY MOUTH EVERY NIGHT AT BEDTIME metformin 500 mg tablet extended release 24 hr 1,000 mg PO BID Patient Comments: TAKE 4 TABLETS BY MOUTH EVERY DAY Jardiance 25 mg tablet 25 mg PO DAILY insulin degludec [Tresiba FlexTouch U-200] 200 unit/mL (3 mL) insulin pen 62 unit subcut QHS oxycodone-acetaminophen [Percocet] 5-325 mg tablet 1 tab PO Q6H PRN (Reason: pain) 5 Days Qty: 20 0RF glipizide 10 mg tablet extended release 24hr 10 mg PO DAILY docusate sodium [Colace] 100 mg capsule 100 mg PO TID ondansetron 8 mg tablet,disintegrating 8 mg PO Q8H PRN (Reason: nausea and vomiting) Qty: 10 0RF Referrals / Follow Up: Lamar Granados DO [Primary Care Provider] - Disposition Disposition (needs filled in before D/C Order can be placed): Home, Self Care
--- NOTE | 2024-08-14 15:11 | SUR.PHASEI ---
DEMANDING AT TIMES. INSISTED ON GETTING OOB TO VOID IN PACU. REPORTING LEFT ABD/FLANK DISCOMFORT, TOO SLEEPY FOR IV NARCOTICS. TORADOL GIVEN AT 1427. ZOFRAN FOR NAUSEA AT 1438. ASKING FOR PO PAIN MEDS, THEN ASKING FOR ANTI-NAUSEA MEDS TO TAKE HOME JUST IN CASE. THEN WANTS SCRIPTS CHANGED FROM [facility] TO [facility]--WILL CONTACT DR BARRERA WHEN SHE IS OUT OF SURGERY. HYDRALAZINE 10 MG AT 1455 FOR SBP >185-200'S. IMPROVED. SPOKE TO DR BARRERA WHO CHANGED KEFLEX & OXYCODONE TO [facility] PER PATIENT REQUEST.
--- NOTE | 2024-08-14 15:44 | POSTOPAN2_ITS ---
Anesthesia Postop Eval I Sum Postop Eval Completion status Anesthesia document: Postop Eval 1 completed: Yes Anesthesia Postop Eval I Summary Anesthesia Postop Eval I Summary: Anesthesia Postop Eval I: Assessment Summary Airway patent Yes 08/14/24 13:40 MANNEQUIN MOUNTER.GDOTT Spontaneous unlabored Yes 08/14/24 13:40 MANNEQUIN MOUNTER.GDOTT respirations Mental status Awake,Calm 08/14/24 13:40 MANNEQUIN MOUNTER.GDOTT nausea No 08/14/24 13:40 MANNEQUIN MOUNTER.GDOTT Vomiting No 08/14/24 13:40 MANNEQUIN MOUNTER.GDOTT Anesthesia Postop Eval I: Fluid Summary Crystalloid volume administer 1,100 08/14/24 13:40 MANNEQUIN MOUNTER.GDOTT (ml) Colloids volume administered ( ml) Blood Product volume administered (ml) Total IV fluid infused 1,100 08/14/24 13:40 MANNEQUIN MOUNTER.GDOTT Anesthesia Postop Eval I: Summary Notes Anesthesia Complication No 08/14/24 13:40 MANNEQUIN MOUNTER.GDOTT Anesthesia Complication Comment: Post-operative progress note Anesthesia: Postop Eval II Evaluation Mental status: Awake and Calm Pain Level: 1 nausea: No Vomiting: No Complications Anesthesia Complication: No
--- NOTE | 2024-08-14 15:44 | PCM.POSTANE2 ---
Anesthesia Postop Eval I Sum Postop Eval Completion status Anesthesia document: Postop Eval 1 completed: Yes Anesthesia Postop Eval I Summary Anesthesia Postop Eval I Summary: Anesthesia Postop Eval I: Assessment Summary Airway patent Yes 08/14/24 13:40 DEPUTY SHERIFF.GDOTT Spontaneous unlabored Yes 08/14/24 13:40 DEPUTY SHERIFF.GDOTT respirations Mental status Awake,Calm 08/14/24 13:40 DEPUTY SHERIFF.GDOTT nausea No 08/14/24 13:40 DEPUTY SHERIFF.GDOTT Vomiting No 08/14/24 13:40 DEPUTY SHERIFF.GDOTT Anesthesia Postop Eval I: Fluid Summary Crystalloid volume administer 1,100 08/14/24 13:40 DEPUTY SHERIFF.GDOTT (ml) Colloids volume administered ( ml) Blood Product volume administered (ml) Total IV fluid infused 1,100 08/14/24 13:40 DEPUTY SHERIFF.GDOTT Anesthesia Postop Eval I: Summary Notes Anesthesia Complication No 08/14/24 13:40 DEPUTY SHERIFF.GDOTT Anesthesia Complication Comment: Post-operative progress note Anesthesia: Postop Eval II Evaluation Mental status: Awake and Calm Pain Level: 1 nausea: No Vomiting: No Complications Anesthesia Complication: No
[2024-08-14 17:30] LABS: Bedside Glucose 312 mg/dL (74-106)
== END 2024-08-14 17:34 | disposition home or self-care (01) ==
LOC: SDC 09:53 → AC 09:55
PROVIDERS: PCP Family Medicine; Referring Provider Urology; Visit Provider Urology
PROC: (CPT 50590; principal; 2024-08-14 11:45)
DX: N13.2 Hydronephrosis with renal and ureteral calculous obstruction (principal); E11.9 Type 2 diabetes mellitus without complications; Z79.4 Long term (current) use of insulin; I10 Essential (primary) hypertension; E78.00 Pure hypercholesterolemia, unspecified; N32.81 Overactive bladder; N39.46 Mixed incontinence; Z79.84 Long term (current) use of oral hypoglycemic drugs; Z79.899 Other long term (current) drug therapy
CPT/HCPCS: 50590; 00873; 82962; J2405

== ENCOUNTER → 2024-09-03 | Outpatient (CLI) | payer MEDICARE, SELFPAY ==
--- NOTE | 2024-09-03 13:05 | RAD_ITS ---
PROCEDURE: Abdominal radiographs, two views. REASON FOR EXAM: Kidney stones TECHNIQUE: Two views of the abdomen were obtained. COMPARISON: CT abdomen/pelvis 07/08/2024 FINDINGS: Two views of the abdomen were obtained. Bones are osteopenic with degenerative changes in the spine. Included lower lungs clear. No abnormally dilated bowel segments. Moderate stool in the left colon. 2 mm tiny calcification projects over the inferior right kidney. A left ureteral stent is now present. A 1 cm calcification projects near the proximal portion of the left ureteral stent. A 2.4 cm calcification projects over the lateral left mid abdomen and may correspond to the nonobstructing left renal calculus on the comparison CT scan. RAD/Abdomen Single View IMPRESSION: Nonobstructive bowel gas pattern. Moderate stool in the left colon. A left ureteral stent is now present. A 1 cm calcification projecting over the proximal left ureteral stent may correspond to the calculus near the left ureteropelvic junction on the comparison CT scan of 07/08/2024. There are additional probable nonobstructing bilateral renal calculi, the largest on the left at 2.4 cm. Reading Location: [facility]
== END | disposition home or self-care (01) ==
LOC: MTRAD 13:04
PROVIDERS: PCP Family Medicine; Referring Provider Urology; Visit Provider Urology
DX: N20.0 Calculus of kidney (principal)
CPT/HCPCS: 74018

== ENCOUNTER 2024-11-13 09:32 | Day surgery (SDC) | payer MEDICARE, SELFPAY ==
[2024-11-13] VITALS (10 sets, daily range): BP systolic 130–177; BP diastolic 62–84; PULSE 72–87; RESP 14–18; TEMP 36.2–37.1; O2SAT 93–98; BMI 36.6
[2024-11-13] MEDS: Lactated Ringers 1,000 ML 15 ML IV (10:31)
--- NOTE | 2024-11-13 10:44 | PRE.ANES_ITS ---
ASA Classification* ASA Classification ASA Classification: 3 Assessment & Plan Anesthesia* Anesthesia Assessment Anesthesia Assessment: Discussed sedation and/or anesthesia options, risks, benefits, and alternatives with patient/parents/legal guardian/POA. Questions invited. The patient/parents/legal guardian/POA seems to understand and agrees to proceed with anesthesia plan. Reviewed the physical assessment, medical history, allergy history and patient home medications list prior to surgery/procedure/anesthetic and documented any changes. Performed airway and anesthesia risk assessments. Anesthesia Type Anesthesia Type: General (NO Nitrous Oxide Use. ) History Source History Obtained from:: Patient and Chart Anesthesia Focused Assessment* Temperature: 98.8 F Pulse Rate: 75 Blood Pressure: 145/73 Respiratory Rate: 16 Pulse Ox: 98 Oxygen Delivery Method: Room Air Airway Assessment Mouth opens: >3 cm Mallampati Score: III Teeth Condition: Chipped/Broken (broken top molars. ) Neck Range of motion (ROM): Full ROM Focused Labs Anesthesia Preop lab: CBC WBC 8.3 K/mm3 (4.4-11.0) 07/08/24 01:58 07/08/24 RBC 4.58 M/mm3 (4.2-5.4) 07/08/24 01:58 07/08/24 Hgb 13.8 g/dL (12.0-15.0) 07/08/24 01:58 07/08/24 Hct 41.2 % (37-47) 07/08/24 01:58 07/08/24 Plt Count 267 K/mm3 (150-450) 07/08/24 01:58 07/08/24 CHEMISTRY Potassium 3.9 mmol/L (3.5-5.1) 07/08/24 01:58 07/08/24 Sodium 138 mmol/L (136-145) 07/08/24 01:58 07/08/24 Magnesium 2.0 mg/dL (1.6-2.6) 05/02/23 14:49 05/02/23 BUN 28 mg/dL (7-18) H 07/08/24 01:58 07/08/24 Creatinine 0.86 mg/dL (0.55-1.02) 07/08/24 01:58 07/08/24 Glucose 151 mg/dL (74-106) H 07/08/24 01:58 07/08/24 POC Glucose 312 mg/dL (74-106) H 08/14/24 17:12 08/14/24 COAG Pre-Assessment Diagnosis/Proposed Procedure Planned Operative Procedure(s): (L) Cysto Left ureteroscopy, laser litho, stone basket extraction, stent change Anesthesia History Anesthesia History - outside industrial sales representative: Anesthesia History - outside industrial sales representative Hx Hospitalization No 11/10/24 13:43 Any Problems With Anesthesia Yes: SLOW TO AWAKEN 11/10/24 13:43 Cholinesterase deficiency No 11/10/24 13:43 You/Your Family Experience No 11/10/24 13:43 fever (hyperthermia) with Relationship Recent Exposure to Contagious No 11/13/24 10:12 Disease Does patient have nerve No 11/10/24 13:43 stimulator Patient instructed to have device shut off --Does patient have Pacemaker No 11/13/24 10:12 or ICD? When Was Last Pacemaker Check QUESTION #4 FULL TEXT: You/Your Family Experience fever (hyperthermia) with Anesthesia Any additional information?: No Last Oral Intake Last Oral intake: Last Oral Intake NPO since 06:30 11/13/24 10:12 Meds taken in AM with sips of water? Meds patient instructed to take am of surgery Any additional information?: Yes NPO since: 00:00 (NPO from solids since before midnight. Took sip of water at 0630 this morning. ) Meds taken in AM with sips of water?: No PONV PONV - outside industrial sales representative: PONV - outside industrial sales representative Female Yes 11/10/24 13:43 HX of Motion Sickness No 11/10/24 13:43 HX of N/V After Surgery No 11/10/24 13:43 Non-Smoker Yes 11/10/24 13:43 Duration of Surgery greater No 11/10/24 13:43 than 60 minutes Number of Risk Factors 2 11/10/24 13:43 PONV Score Moderate Risk 11/10/24 13:43 Any additional information?: No Height & Weight Height & Weight: Anesthesia: Height & Weight Height 4 ft 10 in 11/13/24 10:12 Weight: 79.5 kg 11/13/24 10:12 Body Mass Index (BMI) 36.6 11/13/24 10:12 Respiratory Assessment Respiratory Assessment - outside industrial sales representative: Respiratory Tract Infection Hx - outside industrial sales representative Hx Respiratory Tract Infection No 11/10/24 13:43 Any additional information?: No STOP Sleep Apnea STOP Sleep Apnea - outside industrial sales representative: STOP Sleep Apnea - outside industrial sales representative Hx Hypertension Yes: CONTROLLED WITH MED 11/10/24 13:43 Hx Sleep Apnea No 11/10/24 13:43 CPAP BIPAP Do you snore loudly (louder No 11/10/24 13:43 than talking or can be heard Do you often feel tired/ No 11/10/24 13:43 fatigued/ sleepy during daytime? Has anyone observed you stop No 11/10/24 13:43 breathing during sleep? STOP Results Negative 11/10/24 13:43 QUESTION #5 FULL TEXT : Do you snore loudly (louder than talking or can be heard through closed doors)? Any additional information?: No Tobacco Use History Tobacco Use History - outside industrial sales representative: Tobacco Use History - outside industrial sales representative Tobacco Use Smoking Status Never smoker 11/10/24 13:43 Hx Tobacco Use No 11/10/24 13:43 Years Smoking Packs Smoked per Day Smoking Cessation Date was within the last 15 years Hx Smoking Cessation Date Hx Smoking Cessation Counseling Any additional information?: No Hematologic Medial History Hematologic Hx - outside industrial sales representative: Hematologic Medical Hx - milk powder grinder Hx of Blood Transfusion No 11/10/24 13:43 Hx of Transfusion in last 3 No 11/10/24 13:43 Months Date of Last Transfusion (if within last 3 months) Ever experience any problems No 11/10/24 13:43 with transfusion(s)? Specify any problems Hx of Preganancy in last 3 No 11/10/24 13:43 Months Nurse Filling Out Transfusion VCHRISTIN 11/10/24 13:43 & Questions: Date: 11/10/24 11/10/24 13:43 Time: 13:44 11/10/24 13:43 Patient unable to answer at this time (ie. confused, unrespo Any additional information?: No /Reproduction History /Reproductive History - outside industrial sales representative: /Reproductive Hx- outside industrial sales representative Hx Now No 11/10/24 13:43 Gestational Age (in weeks): EDC: Hx Hx Para Hx Section SAB No 11/10/24 13:43 Any additional information?: No Active Medications Active Medications: Current Medications Generic Name Dose Route Start Last Admin Trade Name Nathaniel PRN Reason Stop Dose Admin Lactated Ringer's 1,000 mls @ 15 mls/hr 11/13/24 10:00 11/13/24 10:31 IV 15 mls/hr .Q48H VALORIE Administration PFSH Medical History Ureteral stone Kidney stones Post-menopausal Anxiety Insulin dependent diabetes mellitus Ambulates with cane Restless legs Back pain Constipation Leg cramps History of edema Wears glasses Arthritis High cholesterol Dietary restriction Non-smoker Hypertension Home Medications ?Medication ?Instructions ?Recorded ?Last Taken ?Type empagliflozin 25 mg tablet 25 mg PO DAILY 05/02/2310/31 History (Jardiance) insulin degludec 200 unit/mL (3 62 unit subcut QHS Unknown History mL) subcutaneous pen (Tresiba FlexTouch U-200 insulin) lisinopril 20 1 tab PO DAILY 05/02/23 Unkn own History mg-hydrochlorothiazide 12.5 mg tablet metformin 500 mg tablet,extended 1,000 mg PO BID 05/02 Unknown History release 24 hr simvastatin 40 mg tablet 40 mg PO QHS 05/02/23 Unknow n History docusate sodium 100 mg capsule 100 mg PO TID 07/21/24 Unknown History (Colace) glipizide 10 mg tablet, extended 10 mg PO DAILY Unknown History release 24 hr insulin lispro 100 unit/mL 8 unit subcut QPM 11/10/24 Unknown History subcutaneous pen (Humalog KwikPen (U-100) Insulin) Allergy/AdvReac Type Severity Reaction Status Date / Time cashew nut (cashews) AdvReac KIDNEY Verified 11/13/24 10:09 STONES peanut AdvReac KIDNEY Verified 11/13/24 10:09 STONES spinach AdvReac kidney Verified 11/13/24 10:09 stones Surgical History Hx of eye surgery History of cystoscopy History of cystoscopy Hx of eye surgery Hx of foot surgery History of hysterectomy Social History Smoking Status: Never smoker Review of Systems (Anesthesia) ROS Narrative System reviewed and no additional complaints, except as documented.
--- NOTE | 2024-11-13 11:10 | CALC_PTH ---
PATIENT: AKMRAN FERRARI LOC: [facility] [place] U#:[id number] AGE/SX: 69/F ROOM: RE11/13/[address]: Dr. Jessica Hebert MD : 1955 BED: DIS: 11/13/2024 SPEC #: [id number] RECD: 11/13/24 12:55 STATUS: LORI LINDSEY #: [id number] MARIO: 11/13/24 11:[address]: Jessica Hebert DEPT: SURGICAL PATHOLOGY RECD BY: Erick Mccullough ENTERED: 11/13/24 13:20 SP TYPE: Calculi OTHR DR: Dr. Lamar Granados, DO Tissues: A - CALCULI Procedures: Surgery Specimen Level I HEADER OPERATION: Left ureteroscopy, laser litho, stone basket extraction PRE-OP DIAGNOSIS: Left renal and left UPJ calculus TISSUE SUBMITTED: A- Left renal stones GROSS DIAGNOSIS A. Left kidney, calculi, ureteroscopy and laser lithotripsy: * Urolithiasis (gross examination only). * Chemical analysis pending, to be reported separately GROSS DESCRIPTION A. Received in a small amount of saline solution in a container labeled with the patient's name, date of , and left renal stones are multiple brown and irregular stone fragments measuring 1.3 x 1.2 x 0.7 cm in aggregate. No soft tissue is received; no sections are submitted for microscopic evaluation, GROSS ONLY. The specimen is submitted entirely to a urolithiasis lab. [facility] 11-13-2024 CPT:19182
[2024-11-13 11:23] LABS: Bedside Glucose 118 mg/dL (74-106)
[2024-11-13 11:23] LABS: Bedside Glucose 127 mg/dL (74-106)
[2024-11-13] MEDS: Cefazolin 2 GM in 0.9% Normal Saline (100mL Bag) 100 ML IV (11:36)
--- NOTE | 2024-11-13 12:41 | PCM.POST.ANE ---
Anesthesia: Postop Eval I Current Vital Signs Temperature: 98.2 F Pulse Rate: 72 Blood Pressure: 177/73 Respiratory Rate: 14 Pulse Ox: 98 Assessment Airway patent: Yes Spontaneous unlabored respirations: Yes Mental status: Calm nausea: No Vomiting: No Anesthesia Complication: No Fluid Hydration Crystalloid volume administer (ml): 800 Total IV fluid infused: 800 Progress Note Anesthesia document: Postop Eval 1 completed: Yes
--- NOTE | 2024-11-13 12:46 | DCINST_ITS ---
Discharge Instructions Diet Discharge Diet: No restrictions Activity Discharge Activity: Return to Normal Activity Dressing / Incision Call your doctor if you observe: Fever of 101 or Higher, Inability to urinate and Inability to have a bowel movement Follow Up Care Please Follow Up With: Jessica Hebert MD When: The office will call tomorrow to make follow up arrangements. Test Results: Test results from this visit will be discussed in further detail at your follow- up appointment, if applicable. Discharge Plan Admission Attending Provider: Jessica Hebert Primary Care Provider: Lamar Granados Instructions Print Language: Kosovan Discharge Orders/Prescriptions Prescriptions: New oxycodone-acetaminophen 5-325 mg tablet 1 tab PO Q8H PRN (Reason: pain) 3 Days Qty: 10 0RF cephalexin 500 mg capsule 500 mg PO Q12 3 Days Qty: 6 0RF ondansetron 4 mg tablet,disintegrating 4 mg PO Q8H PRN (Reason: nausea and vomiting) Qty: 10 0RF phenazopyridine 200 mg tablet 200 mg PO TID PRN (Reason: pain) Qty: 30 3RF Continued lisinopril-hydrochlorothiazide 20-12.5 mg tablet 1 tab PO DAILY Patient Comments: TAKE 1 TABLET BY MOUTH DAILY simvastatin 40 mg tablet 40 mg PO QHS Patient Comments: TAKE 1 TABLET BY MOUTH EVERY NIGHT AT BEDTIME metformin 500 mg tablet extended release 24 hr 1,000 mg PO BID Patient Comments: TAKE 4 TABLETS BY MOUTH EVERY DAY Jardiance 25 mg tablet 25 mg PO DAILY Patient Comments: LAST DOSE OCTOBER 05, 2024 insulin degludec [Tresiba FlexTouch U-200] 200 unit/mL (3 mL) insulin pen 62 unit subcut QHS glipizide 10 mg tablet extended release 24hr 10 mg PO DAILY docusate sodium [Colace] 100 mg capsule 100 mg PO TID insulin lispro [Humalog KwikPen Insulin] 100 unit/mL insulin pen 8 unit subcut QPM Referrals / Follow Up: Lamar Granados DO [Primary Care Provider] - Disposition Disposition (needs filled in before D/C Order can be placed): Home, Self Care
--- NOTE | 2024-11-13 12:48 | OP.PCM_ITS ---
Operative Report (Standard) Operative Information Date of Procedure: 11/13/24 Pre-Operative Diagnosis: Left renal and ureteral calculi Post-Operative Diagnosis: Same Surgery/Procedure Performed: Cystoscopy, left ureteroscopy, stone basket extraction, left ureteral stent change department editor: No Type of Anesthesia: General RN Documented Start/Stop Times: Operation Date: 11/13/24 11:10 Case Time Into Pre-Op 11/13/24 09:48 Out of Pre-Op 11/13/24 11:33 Anesthesia Start 11/13/24 11:36 Into Room 11/13/24 11:36 Procedure Start 11/13/24 11:51 Procedure End 11/13/24 12:22 Anesthesia End 11/13/24 12:31 Out of Room 11/13/24 12:31 Into Recovery 11/13/24 12:32 Procedure Start Time: 11:51 Procedure Stop Time: 12:22 Select all DRAINS/GRAFTS/IMPLANTS that apply: Drains Drain details: 6 Monegasque by 20 cm JJ stent Estimated Blood Loss: <5cc Specimen collected: Yes Description of specimen(s) removed: Multiple left ureteral stone fragments Description of surgery: The patient is a 69-year-old female who is status post extracorporal shockwave lithotripsy for a UPJ calculus and a left renal calculus. She has retained left ureteral and renal stone fragments and is here for intervention. Informed consent was obtained. She was taken to the operating room and placed on the operating room table. Anesthesia monitored the head, neck, airway, IV access and vital signs throughout the case. Once anesthesia was appropriately administered she was placed into dorsolithotomy position was prepped and draped in usual sterile fashion. The cystoscope was inserted through the urethra under direct visualization into the urinary bladder. The bladder mucosa was visualized [place] no evidence of abnormality. The left ureteral stent was observed and grasped with forceps and pulled through the urethral meatus where it was unsuccessfully backloaded with a wire. The stent was then removed and a 0.035 Glidewire was passed without difficulty through the left ureteral orifice into the renal pelvis is seen on fluoroscopy. At this time, no significant stone fragments were observed over the renal shadow. Multiple stones were seen alongside of the stent in the mid ureter. Using a semirigid ureteroscope, access was obtained to the left ureter without difficulty and multiple stone fragments were removed totaling over a centimeter of stone burden. At this time the ureter became more significantly edematous and further trauma to the ureter was not felt to be safe. At this time, using the safety wire and the cystoscope, a 6 Monegasque 20 cm JJ stent was placed over the wire with good positioning in the renal pelvis as well as the urinary bladder. The stone fragments were all irrigated from the bladder and sent for evaluation. The bladder was emptied and the cystoscope was removed. She was awakened and taken to the recovery room in good condition. There were no complications during this procedure. Surgical Findings: Steinstrasse of the mid ureter Complications Complications: No Admit VTE Documentation VTE Present on Admission: Yes VTE Mechan Device Prophylaxis: SCD's VTE Pharm Prophylaxis ordered?: No Reason prophylaxis not ordered: Treatment Not Indicated
--- NOTE | 2024-11-13 13:13 | POSTOPAN2_ITS ---
Anesthesia Postop Eval I Sum Postop Eval Completion status Anesthesia document: Postop Eval 1 completed: Yes Anesthesia Postop Eval I Summary Anesthesia Postop Eval I Summary: Anesthesia Postop Eval I: Assessment Summary Airway patent Yes 11/13/24 12:41 ACCOUNTS RECEIVABLE BOOKKEEPER.HBARR Spontaneous unlabored Yes 11/13/24 12:41 ACCOUNTS RECEIVABLE BOOKKEEPER.HBARR respirations Mental status Calm 11/13/24 12:41 ACCOUNTS RECEIVABLE BOOKKEEPER.HBARR nausea No 11/13/24 12:41 ACCOUNTS RECEIVABLE BOOKKEEPER.HBARR Vomiting No 11/13/24 12:41 ACCOUNTS RECEIVABLE BOOKKEEPER.HBARR Anesthesia Postop Eval I: Fluid Summary Crystalloid volume administer 800 11/13/24 12:41 ACCOUNTS RECEIVABLE BOOKKEEPER.HBARR (ml) Colloids volume administered ( ml) Blood Product volume administered (ml) Total IV fluid infused 800 11/13/24 12:41 ACCOUNTS RECEIVABLE BOOKKEEPER.HBARR Anesthesia Postop Eval I: Summary Notes Anesthesia Complication No 11/13/24 12:41 ACCOUNTS RECEIVABLE BOOKKEEPER.HBARR Anesthesia Complication Comment: Post-operative progress note Anesthesia: Postop Eval II Evaluation Mental status: Awake and Calm Pain Level: 0 nausea: No Vomiting: No Complications Anesthesia Complication: No
--- NOTE | 2024-11-13 13:13 | PCM.POSTANE2 ---
Anesthesia Postop Eval I Sum Postop Eval Completion status Anesthesia document: Postop Eval 1 completed: Yes Anesthesia Postop Eval I Summary Anesthesia Postop Eval I Summary: Anesthesia Postop Eval I: Assessment Summary Airway patent Yes 11/13/24 12:41 CONSULTING SOLUTION DIRECTOR.HBARR Spontaneous unlabored Yes 11/13/24 12:41 CONSULTING SOLUTION DIRECTOR.HBARR respirations Mental status Calm 11/13/24 12:41 CONSULTING SOLUTION DIRECTOR.HBARR nausea No 11/13/24 12:41 CONSULTING SOLUTION DIRECTOR.HBARR Vomiting No 11/13/24 12:41 CONSULTING SOLUTION DIRECTOR.HBARR Anesthesia Postop Eval I: Fluid Summary Crystalloid volume administer 800 11/13/24 12:41 CONSULTING SOLUTION DIRECTOR.HBARR (ml) Colloids volume administered ( ml) Blood Product volume administered (ml) Total IV fluid infused 800 11/13/24 12:41 CONSULTING SOLUTION DIRECTOR.HBARR Anesthesia Postop Eval I: Summary Notes Anesthesia Complication No 11/13/24 12:41 CONSULTING SOLUTION DIRECTOR.HBARR Anesthesia Complication Comment: Post-operative progress note Anesthesia: Postop Eval II Evaluation Mental status: Awake and Calm Pain Level: 0 nausea: No Vomiting: No Complications Anesthesia Complication: No
== END 2024-11-13 14:54 | disposition home or self-care (01) ==
LOC: SDC 09:36 → AC 09:37
PROVIDERS: PCP Family Medicine; Referring Provider Urology; Visit Provider Urology
PROC: (CPT 52320; principal; 2024-11-13 10:55)
DX: N13.2 Hydronephrosis with renal and ureteral calculous obstruction (principal); E11.9 Type 2 diabetes mellitus without complications; Z79.4 Long term (current) use of insulin; I10 Essential (primary) hypertension; Z79.84 Long term (current) use of oral hypoglycemic drugs; Z79.899 Other long term (current) drug therapy; Z87.442 Personal history of urinary calculi
CPT/HCPCS: 52320; 00918; 76000; 82360; 82962; 88300; C1769; C2617; J2405

== ENCOUNTER → 2024-12-02 | Outpatient (CLI) | payer MEDICARE, SELFPAY ==
--- NOTE | 2024-12-02 11:15 | RAD_ITS ---
PROCEDURE: ABDOMEN SINGLE VIEW 12/02/2024 REASON FOR EXAM: KUB- KIDNEY STONE TECHNIQUE: Single view abdomen. 2 images to include the entire abdomen and pelvis COMPARISON: 09/03/2024 FINDINGS: Double-J left ureteral stent again seen. Previous calcific density along the proximal aspect of the stent is no longer seen. No calcification is seen along the stent. Previously noted large area of calcification over the left renal shadow is now smaller and fainter in appearance with largest area measuring around 1.1 cm may reflect interval lithotripsy. Small calcification over the lower aspect of the right renal shadow again seen, possible renal stone. Visualized lung bases appear clear. No gaseous distention of bowel. RAD/Abdomen Single View IMPRESSION: Findings as above. Reading Location: [id number]
== END | disposition home or self-care (01) ==
LOC: MTRAD 11:14
PROVIDERS: PCP Family Medicine; Referring Provider Urology; Visit Provider Urology
DX: N20.0 Calculus of kidney (principal)
CPT/HCPCS: 74018

== ENCOUNTER → 2024-12-22 | Outpatient (CLI) | payer MEDICARE, SELFPAY ==
--- NOTE | 2024-12-22 15:02 | CT_ITS ---
PROCEDURE: ABDOMEN/PELVIS WITHOUT CONT 12/22/2024 REASON FOR EXAM: RENAL/URETERAL STONES TECHNIQUE: ABDOMEN/PELVIS WITHOUT CONT Noncontrast technique limits evaluation of the abdominal and pelvic viscera. Coronal and Sagittal reconstruction series were provided. One or more dose reduction techniques were used (e.g., Automated exposure control, adjustment of the mA and/or kV according to patient size, use of iterative reconstruction technique). ORAL CONTRAST TYPE: None. COMPARISON: CT abdomen and pelvis without contrast, 07/08/2024. FINDINGS: Lung bases: There is linear scarring in both lung bases. There are no pleural effusions. The heart size is normal. There is a small pericardial effusion. There is calcific vascular disease of the thoracic aorta and coronary arteries. Liver: Normal unenhanced appearance. Gallbladder: Normal. Spleen: Normal unenhanced appearance. There is a splenule in the splenic hilum. Pancreas: Normal unenhanced appearance. Adrenals: There is a 2.9 cm in diameter partially fatty nodule in the left adrenal gland. The right adrenal gland is unremarkable. Kidneys: There is a left-sided double-J ureteral stent in good position. There is a 1 mm stone in an interpolar calyx of the right kidney. There is a 2 mm stone in a lower pole calyx of the right kidney. There are 2 x 1 mm stones in lower pole calices of the right kidney. There is a 4 mm stone in a lower pole calyx of the right kidney, max HU, 665. There is a 2 mm stone in an upper pole calyx of the left kidney. There is a 6 mL stone in a lower pole calyx of the left kidney, max HU 559 there is a 6 mm stone in a lower pole calyx of the left kidney, max HU 845. There is no ureterolithiasis. Bladder: Normal unenhanced appearance. Reproductive Organs: The uterus is surgically absent. The ovaries are not identified. Bowel: There is stool throughout the colon. There are scattered colonic diverticuli without evidence of acute inflammation. Appendix: Not identified. Lymph nodes: There is no mesenteric or retroperitoneal lymphadenopathy. Vasculature: There is calcific vascular disease of the abdominal aorta. There is significant calcified plaque of the origin of the right renal artery. Abdominal wall: There are no abdominal wall defects. Musculoskeletal: There is multilevel degenerative disc disease of the lower thoracic and lumbar spine, most severe at the L4-5 and L5-S1 levels.. There is multilevel facet arthropathy. There is degenerative grade 1 anterolisthesis of L4 on L5. CT/Abdomen/Pelvis without Cont IMPRESSION: 1. Bilateral nephrolithiasis without ureterolithiasis. 2. Left-sided double-J ureteral stent in good position. 3. Moderate constipation. 4. Stable left adrenal myelolipoma. 5. Other findings as noted. Reading Location: [id number]
== END | disposition home or self-care (01) ==
PROVIDERS: PCP Family Medicine; Referring Provider Urology; Visit Provider Urology
DX: N20.0 Calculus of kidney (principal); N20.1 Calculus of ureter
CPT/HCPCS: 74176